=== PATIENT | female | born 1950 | race Caucasian/White ===

== ENCOUNTER 2022-07-29 07:16 | Day surgery (SDC) | payer MEDICARE, OTHER, SELFPAY ==
--- NOTE | 2022-07-29 07:34 | SUR.PREOP ---
Patient provided home covid negative results to RN.
--- NOTE | 2022-07-29 07:34 | SUR.PREOP ---
The eye drops brought by the patient (Ketorolac and Prednisolone) are examined and I have determined they are labeled by the patient's pharmacy for this patient as prescribed by the surgeon. The bottles are intact, recently obtained and appear to be correct.
[2022-07-29] MEDS: TETRACAINE 0.5% OPHTH 1 DROP EYE-RIGHT ×2 (07:40→07:51)
[2022-07-29 07:46] VITALS: BMI 38.4
[2022-07-29] MEDS: KETOROLAC OPHTH 0.5% 1 DROP EYE-RIGHT ×2 (07:49→08:00)
[2022-07-29 08:00] VITALS: BP 148/77; PULSE 69; RESP 16; TEMP 36.8; O2SAT 96
[2022-07-29] MEDS: SODIUM CHLORIDE 0.9 % (FLUSH) 10 ML SYRINGE IVF (08:01)
[2022-07-29] MEDS: TETRACAINE 0.5% OPHTH 2 DROP EYE-RIGHT (08:47)
[2022-07-29] MEDS: BALANCED SALT IRRIG SOLN 15 ML EYE-RIGHT (08:55)
[2022-07-29] MEDS: TRYPAN BLUE 0.5 ML SYRINGE EYE-RIGHT (08:55)
--- NOTE | 2022-07-29 08:57 | P.ANES_ITS ---
Anesthesia Charges Start Date/Time Anesthesia Start Date: 07/29/22 Anesthesia Start Time: 08:48 Stop Date/Time Anesthesia Stop Date: 07/29/22 Anesthesia Stop Time: 09:22 Summary Extremes of Age - Over 70 or under 1: [employer]
[2022-07-29] MEDS: ERYTHROMYCIN OPHTH OINT 3.5 GM 1 APPLIC EYE-RIGHT (09:13)
[2022-07-29 09:17] VITALS: BP 143/70; PULSE 60; RESP 16; TEMP 36.3; O2SAT 96
[2022-07-29 09:33] VITALS: BP 138/66; PULSE 62; RESP 16; O2SAT 97
--- NOTE | 2022-07-29 10:14 | P.OPTPRC_ITS ---
Procedure Note Date of procedure: 07/29/22 Will [facility] bill your pro fee for this procedure?: Yes Procedure Description: SURGEON: Alayna Wilson MD PREOPERATIVE DIAGNOSIS: Mature cataract, right eye. POSTOPERATIVE DIAGNOSIS: Mature cataract, right eye. NAME OF OPERATION: Phacoemulsification of cataract with posterior chamber intraocular lens implantation in the right eye with trypan blue. ANESTHESIA: Topical. ESTIMATED BLOOD LOSS: Less than 2 cc. COMPLICATIONS: None. PATHOLOGY SPECIMEN: None. INDICATIONS: See consult note for details. The risks, benefits and alternatives of the procedure were explained to the patient, who elected to proceed and signed informed consent to do so. PROCEDURE: The patient was brought to the pre-holding area where the right eye was identified as the operative eye. I placed my initials above this eye. The patient received eye drops consisting of 0.5% tetracaine, 1% tropicamide, 10% phenylephrine, and 0.5% ketorolac. The patient was then brought to the operating room where the left eye was again identified as the operative eye. The eye was prepped with Betadine and draped in the usual sterile ophthalmic fashion. A #15 super-sharp blade was used to create a paracentesis site. 1% non-preserved intracameral lidocaine was injected into the anterior chamber. An air bubble was injected into the anterior chamber. Trypan blue was injected posterior to the air bubble in order to stain the anterior capsule. Balanced salt solution was used to irrigate the anterior chamber. Endocoat was injected into the anterior chamber. A 2.4 mm keratome was used to create a three-plane self-sealing incision 1 mm anterior to the temporal limbus. A cystotome was used to create an anterior capsular leaflet. The Utrata forceps were used to extend this to form a continuous curvilinear capsulorrhexis. Hydrodissection was performed. The cataract was removed with phacoemulsification using the [id number] technique. The irrigation and aspiration tip was used to remove the remaining cortex. Healon was injected into the capsular bag. An BERNY ZCB00 intraocular lens of 19.5 diopters was injected into the capsular bag. The irrigation and aspiration tip was used to remove the remaining viscoelastic. Balanced salt solution on a cannula was used to hydrate the wound, and the wound was found to be watertight. The pupil was noted to be round. A small corneal abrasion was noted anterior to the paracentesis site. Therefore erythromycin ophthalmic ointment was placed. DISPOSITION: The patient was taken to the recovery room and discharged to home in stable condition. The patient was notified of the corneal abrasion and instructed to use the erythromycin ophthalmic ointment 4 times a day today and tomorrow, then as directed. The patient was instructed to call me or go to the emergency department with any sudden change, including dramatic loss of vision, severe pain in the eye or eyebrow region, nausea, or vomiting. The patient will follow up in the clinic tomorrow morning. Surgeon: Alayna Wilson MD
== END 2022-07-29 09:49 | disposition home or self-care (01) ==
LOC: OR 07:25
PROVIDERS: PCP Family Medicine; Visit Provider Ophthalmology
PROC: (CPT 66984; principal; 2022-07-29 07:30)
DX: H25.89 Other age-related cataract (principal)
CPT/HCPCS: 66984; 00142; 99100; A9270; J2250; J3010; V2632

== ENCOUNTER 2022-08-12 06:19 | Day surgery (SDC) | payer MEDICARE, OTHER, SELFPAY ==
[2022-08-12 06:39] VITALS: BP 143/62; PULSE 81; RESP 18; TEMP 36.6; O2SAT 93; BMI 38.4
[2022-08-12] MEDS: TETRACAINE 0.5% OPHTH 1 DROP EYE-LEFT ×2 (06:46→06:50)
[2022-08-12] MEDS: KETOROLAC OPHTH 0.5% 1 DROP EYE-LEFT ×2 (06:49→06:53)
[2022-08-12] MEDS: SODIUM CHLORIDE 0.9 % (FLUSH) 10 ML SYRINGE IVF (06:55)
--- NOTE | 2022-08-12 08:03 | W.ANESCHARGE ---
Anesthesia Charges Start Date/Time Anesthesia Start Date: 08/12/22 Anesthesia Start Time: 08:08 Stop Date/Time Anesthesia Stop Date: 08/12/22 Anesthesia Stop Time: 08:42 Summary Extremes of Age - Over 70 or under 1: MDA
[2022-08-12] MEDS: TETRACAINE 0.5% OPHTH 2 DROP EYE-LEFT (08:10)
[2022-08-12] MEDS: BALANCED SALT IRRIG SOLN 15 ML EYE-LEFT (08:14)
[2022-08-12 08:40] VITALS: BP 137/76; PULSE 68; RESP 20; TEMP 36.4; O2SAT 99
--- NOTE | 2022-08-12 08:44 | W.ANESCHARGE ---
Anesthesia Charges Start Date/Time Anesthesia Start Date: 08/12/22 Anesthesia Start Time: 08:08 Stop Date/Time Anesthesia Stop Date: 08/12/22 Anesthesia Stop Time: 08:42
--- NOTE | 2022-08-12 08:44 | W.PM.OPTPROC ---
Procedure Note Date of procedure: 08/12/22 [address] [facility] bill your pro fee for this procedure?: Yes Procedure Description: SURGEON: Alayna Wilson MD PREOPERATIVE DIAGNOSIS: Nuclear sclerotic cataract, left eye. POSTOPERATIVE DIAGNOSIS: Nuclear sclerotic cataract, left eye. NAME OF OPERATION: Phacoemulsification of cataract with posterior chamber intraocular lens implantation in the left eye. ANESTHESIA: Topical. ESTIMATED BLOOD LOSS: Less than 2 cc. COMPLICATIONS: None. PATHOLOGY SPECIMEN: None. INDICATIONS: See consult note for details. The risks, benefits and alternatives of the procedure were explained to the patient, who elected to proceed and signed informed consent to do so. PROCEDURE: The patient was brought to the pre-holding area where the left eye was identified as the operative eye. I placed my initials above this eye. The patient received eye drops consisting of 0.5% tetracaine, 1% tropicamide, 10% phenylephrine, and 0.5% ketorolac. The patient was then brought to the operating room where the left eye was again identified as the operative eye. The eye was prepped with Betadine and draped in the usual sterile ophthalmic fashion. A #15 super-sharp blade was used to create a paracentesis site. 1% non-preserved intracameral lidocaine was injected into the anterior chamber. Endocoat was injected into the anterior chamber. A 2.4 mm keratome was used to create a three-plane self-sealing incision 1 mm anterior to the temporal limbus. A cystotome was used to create an anterior capsular leaflet. The Utrata forceps were used to extend this to form a continuous curvilinear capsulorrhexis. Hydrodissection was performed. The cataract was removed with phacoemulsification using the [id number] technique. The irrigation and aspiration tip was used to remove the remaining cortex. Healon was injected into the capsular bag. An BERNY ZCB00 intraocular lens of 19.0 diopters was injected into the capsular bag. The irrigation and aspiration tip was used to remove the remaining viscoelastic. Balanced salt solution on a cannula was used to hydrate the wound, and the wound was found to be watertight. The pupil was noted to be round. DISPOSITION: The patient was taken to the recovery room and discharged to home in stable condition. The patient was instructed to call me or go to the emergency department with any sudden change, including dramatic loss of vision, severe pain in the eye or eyebrow region, nausea, or vomiting. The patient will follow up in the clinic tomorrow morning. Surgeon: Alayna Wilson MD
== END 2022-08-12 09:03 | disposition home or self-care (01) ==
PROVIDERS: PCP Family Medicine; Visit Provider Ophthalmology
PROC: (CPT 66984; principal; 2022-08-12 06:45)
DX: H25.12 Age-related nuclear cataract, left eye (principal)
CPT/HCPCS: 66984; 00142; 99100; A9270; J2250; J3010; V2632

== ENCOUNTER 2023-06-02 14:52 | Outpatient (CLI) | payer MEDICARE, OTHER, SELFPAY ==
--- NOTE | 2023-06-02 15:30 | CRLHL7_ITS ---
For Patients: As a result of the Century Cures Act, medical imaging exams and procedure reports are released immediately into your electronic medical record. You may view this report before your referring provider. If you have questions, please contact your health care provider. DXA BONE MINERAL DENSITY STUDY Reason for exam: Osteoporosis. Current height (in): 62. Weight (lb): 214. Menopause age: 47 Ethnicity: White. 1. Have you had a previous hip or vertebral fracture? No. 2. Have you had any fractures during your adult life which did not result from significant trauma (e.g., auto accident)? No. 3. Did either of your parents have a hip fracture? Yes. 4. Do you smoke? Yes. 5. Have you ever taken Glucocorticoids? No. 6. Do you have rheumatoid arthritis? No. 7. Do you have secondary osteoporosis? No. 8. Do you drink 3 or more alcoholic drinks per day? No. 9. Are you being treated for osteoporosis? No. 10. Have you ever taken any of the following medications: Actonel, Evista, Fosamax, Miacalcin, Reclast, Boniva, Forteo, HRT (i.e., estrogen/hormone therapy), Protelos, Prolia, Vitamin D, Calcium, other ??? please specify. ANSWER: Yes, vitamin D. 11. Do you have any of the following medical conditions: Anorexia or bulimia, asthma or emphysema, end stage renal disease, hyperparathyroidism, any seizure disorders, cancer, inflammatory bowel diseases, hysterectomy, other ??? please specify. ANSWER: No. 12. What was your maximum height (inches)? 63. 13. Do you perform weight bearing exercise regularly? No. 14. Do you regularly consume dairy products? No. 15. Do you drink caffeinated beverages? Yes. If female: 16. At what age did your period start? Not provided. 17. Are you premenopausal? No. 18. How many full-term pregnancies have you had? 4. 19. Have you ever missed your period for more than 6 months in a row (not including or menopause)? No. TECHNIQUE: Bone mineral density study was performed using the Cronote. FINDINGS: The results of the study expressed as bone mineral density (BMD) are as follows: Lumbar spine L1to L4: BMD: 0.898 g/cm2. T-score: -1.4. Z-score: 0.9 Neck Right: BMD: 0.738 g/cm2. T-score: -1.0. Z-score: 1.0. Total Right: BMD: 0.888 g/cm2. T-score: -0.4. Z-score: 1.2. IMPRESSION: Osteopenia. FRAX 10-year Fracture Risk Major Osteoporotic Fracture: 14% Hip Fracture: 5.4% Reported Risk Factors: [place] () Neck BMD=0.738, BMI= 39.1, parental fracture, smoking Phuc Faulkner M.D. Diagnostic Radiologist [email or web address] DSM/[email or web address] castillo/Dictated by: Phuc Faulkner MD @ 06/03/2023 9:15:00 AM (Electronically Signed)
== END 2023-06-02 14:53 | disposition home or self-care (01) ==
LOC: RAD 14:53
PROVIDERS: PCP Family Medicine; Visit Provider Family Medicine
DX: Z13.820 Encounter for screening for osteoporosis (principal); M85.89 Other specified disorders of bone density and structure, multiple sites; Z78.0 Asymptomatic menopausal state
CPT/HCPCS: 77080

== ENCOUNTER 2024-04-03 14:51 | Outpatient (CLI) | payer MEDICARE, OTHER, SELFPAY ==
--- OUTSIDE RECORDS SUMMARY | 2024-04-03 15:01 | XMS_ITS | Clinical Summary ---
Author Organization [facility] Address [address] [place] [address] Care Team Providers Care Director Furniture Name Role Phone Paco Seals MD Primary Care Provider Allergies Active Allergy Reactions Criticality Noted Date Comments Adhesive Tape Other (see comments) High Water blisters Oxycodone Nausea And Vomiting High Medications Medication Sig Dispensed Refills Start Date End Date Status atorvastatin (Lipitor) 20 MG tabletIndications:Mix ed hyperlipidemia Take one pill in the PM for cholesterol 90 tablet 3 04/14/2023 Active olmesartan (Benicar) 20 MG tabletIndications:[facility] hypertension Take 1/2 pill a day for the first ten days then take one full pill daily for blood pressure 90 tablet 3 04/14/2023 Active aspirin 81 MG chewable tablet Chew 1 tablet (81 mg total) 1 (one) time each day Active cholecalciferol (VITAMIN D-3) 25 MCG (1000 UT) tablet Take 1 tablet (1,000 Units total) by mouth 1 (one) time each day Active Cyanocobalamin (B-12 PO) Take by mouth Active Magnesium 250 MG tablet Take by mouth Active acetaminophen (TYLENOL) 500 MG tablet Take 2 tablets (1,000 mg total) by mouth every 6 (six) hours if needed for mild pain Active Active Problems Problem Noted Date Diagnosed Date Risk factors for obstructive sleep apnea 023 Primary hypertension 04/14/2023 Family history of ASCVD 04/14/2023 Family history of stroke 04/14/2023 First degree AV block 07/14/2022 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) 07/14/2022 Cataracts, bilateral 04/09/2022 Decreased hearing of both ears 04/18/2019 Mixed hyperlipidemia 05/07/2018 Primary osteoarthritis of both hips 05/07/2018 Cigarette nicotine dependence without complicati on 05/07/2018 TIA (transient ischemic attack) 05/07/2018 Family history of malignant neoplasm of breast 1 07/06/2015 Obesity 03/11/2016 Personal history of malignant neoplasm of breast 10/05/2013 Resolved Problems Problem Noted Date Diagnosed Date Resolved Date History of TIA (transient ischemic attack) 04/18/2019 04/05/2021 Encounters Date Type Department Care Team Description 03/31/[address] [address] Paco Seals MD Referrals (Radiology and Orthopedics) 03/30/2024 3:20 PM CDT Office Visit [address] [address] Paco Seals MD Medicare annual wellness visit, subsequent (Primary Dx); Primary hypertension; Mixed hyperlipidemia; Osteopenia, unspecified location; Low TSH level; Chronic left hip pain; Greater trochanteric pain syndrome; Need for hepatitis C screening test; History of total hip arthroplasty, left; Immunization due 03/29/2024 Nurse Triage [address] [address] Paco Seals MD from Last 3 Months Immunizations Name Administration Dates Next Due COVID-19, mRNA, LNP-S, PF, 3 0mcg/0.3mL dose Pfizer 09/11/2020,08/21/2020 COVID-19, mRNA, LNP-S, bival ent booster 12 yr and older, PF, 30mcg/0.3mL dose (pfizer) 05/18/2022 Flu Vaccine High Dose 65yrs and Older IM 04/14/2023,04/08/2022,04/04/2021,03/19,05/06/2018,06/11/2017,03/11/2016 Influenza, High-Dose, Trival ent, PF, 65 yrs and Older 03/31/2024,05/06/2018,06/11/2017,03/11 Influenza, Unspecified 03/21/2019 Pneumococcal Conjugate 13-Valent 03/11/2016 Pneumococcal Polysaccharide 06/11/2017 Tdap 04/08/2022,12/04/2011 Family History Medical History Relation Comments Seizures Brother 1 Relation Status Comments Brother 1 Brother 2 Alive Brother 3 Alive Brother 4 Alive Brother 5 Alive Brother 6 Alive Daughter Alive Father Mother Sister 1 Alive Sister 2 Alive Sister 3 Passed 2 hours a fter Son 1 Alive Son 2 Alive Son 3 Alive Social History Tobacco Use Types Packs/Day Years Used Date Smoking Tobacco: Every Day Cigarettes 0.3 50 Smokeless Tobacco: Never Tobacco Cessation:Ready to Q uit: No; Counseling Given: No Alcohol Use Standard Drinks/Week Comments No 0 (1 standard drink = 0.6 oz pur e alcohol) B1300 Health Literacy Answer Date Recor ded How often do you need to hav e someone help you when you read instructions, pamphlets, or other written material from your doctor or pharmacy? Never 03/30/2024 [employer] Utilities Answer Date Recorded In the past 12 months has e [employer], or water [employer] threatened to shut off services in your home? No 03/30/2024 Humiliation, Afraid, Rape, and Kick questionnair e Answer Date Recorded Within the last year, have y ou been afraid of your partner or ex-partner? No 03/30/2024 Within the last year, have y ou been humiliated or emotionally abused in other ways by your partner or ex-partner? No Within the last year, have y ou been kicked, hit, slapped, or otherwise physically hurt by your partner or ex-partner? No 03/30/2024 Within the last year, have y ou been raped or forced to have any kind of sexual activity by your partner or ex-partner? No 03/30/2024 Social Connection and Isolation Panel [NHANES] A nswer Date Recorded In a typical week, how many times do you talk on the phone with family, friends, or neighbors? Never 03/30/2024 How often do you get togethe r with friends or relatives? Three times a week 03/30/2024 How often do you attend [facility] or jain services? Never 03/30/2024 Do you belong to any clubs o r organizations such as taoism groups, unions, fraternal or athletic groups, or school groups? No 03/30/2024 How often do you attend meet ings of the clubs or organizations you belong to? Never 03/30/2024 Are you , , di vorced, , never , or living with a partner? 03/30/2024 AUDIT-C Answer Date Recorded Q1: How often do you have a drink containing alcohol? Monthly or less 03/30/2024 Q2: How many drinks containi ng alcohol do you have on a typical day when you are drinking? Patient does not drink Q3: How often do you have si x or more drinks on one occasion? Never 03/30/2024 Overall Financial Resource Strain (CARDIA) Answe r Date Recorded How hard is it for you to pa y for the very basics like food, housing, medical care, and heating? Not hard at all 03/30/2024 PHQ-2 Answer Date Recorded PHQ-9 Total Score 9 03/30/2024 [facility] - Occupational Stress Questionnaire Answer Date Recorded Do you feel stress - tense, restless, nervous, or anxious, or unable to sleep at night because your mind is troubled all the time - these days? Not at all 03/30/2024 Exercise Vital Sign Answer Date Recorde d On average, how many days pe r week do you engage in moderate to strenuous exercise (like a brisk walk)? 0 days 03/30/2024 On average, how many minutes do you engage in exercise at this level? 0 min 03/30/2024 Hunger Vital Sign Answer Date Recorded Within the past 12 months, y ou worried that your food would run out before you got the money to buy more. Never true 03/30/20 24 Within the past 12 months, t he food you bought just didn't last and you didn't have money to get more. Never true 03/30/2024 PRAPARE - Transportation Answer Date Re corded In the past 12 months, has l ack of transportation kept you from medical appointments or from getting medications? No 03/21 In the past 12 months, has l ack of transportation kept you from meetings, work, or from getting things needed for daily living? No 03/30/2024 Housing Stability Vital Sign Answer Carlito e Recorded In the last 12 months, was t here a time when you were not able to pay the mortgage or rent on time? No 04/14/2023 In the last 12 months, how many places have you lived? 1 04/14/2023 In the last 12 months, was t here a time when you did not have a steady place to sleep or slept in a senior living (including now)? No 04/14/2023 Housing Stability Vital Sign Answer Carlito e Recorded In the last 12 months, was t here a time when you were not able to pay the mortgage or rent on time? No 03/30/2024 In the past 12 months, how m any times have you moved where you were living? 0 03/30/2024 At any time in the past 12 m [facility], were you homeless or living in a senior living (including now)? No 03/30/2024 Interpersonal Safety Questionnaire Answer Date Recorded How often does anyone, jack gamble family and friends, physically hurt you? Never 03/30/2024 How often does anyone, jack gamble family and friends, insult or talk down to you? Never 03/30/2024 How often does anyone, jack gamble family and friends, threaten you with harm? Never 03/30/2024 How often does anyone, jack gamble family and friends, threaten you with harm? Never 03/30/2024 Sex and Gender Information Value Date Recorded Sex Assigned at Not on file Gender Identity Not on file Sexual Orientation Not on file Last Filed Vital Signs Vital Sign Reading Time Taken Comments Blood Pressure 138/64 03/30/2024 3:19 PM CDT Pulse 91 03/30/2024 3:19 PM CDT Temperature 36.7 ??C (98 ??F) 03/30/2024 3:19 PM CDT Respiratory Rate 18 03/30/2024 3:19 PM CDT Oxygen Saturation 95% 03/30/2024 3:19 PM CDT Inhaled Oxygen Concentration - - Weight 96.3 kg (212 lb 6.4 oz) 03/30/2024 3:19 P M CDT Height 159 cm (5' 2.6) 03/30/2024 3:19 PM CDT Body Mass Index 38.11 03/30/2024 3:19 PM CDT Plan of Treatment Upcoming Encounters Date Type Department Care Team (Late st Contact Info) Description 04/13/2024 2:00 PM CDT Office Visit Paco Walters [address] [place] [id number] 04/13/2024 2:20 PM CDT Immunization [address] [address] 04/18/2024 3:20 PM CDT Office Visit [address] [address] Paco Seals MD [address] [address] Health Maintenance Due Date Last Done Comments Bone Density Scan 1950 CT Colonography 1950 Sigmoidoscopy 1950 iFOBT 1950 Zoster Vaccines (1 of 2) 2000 Colonoscopy 01/19/2022 01/19/2019 Colorectal Cancer Screening 04/28/2022 COVID-19 Vaccine ( season) 2024 05/18/2022, 04/22/2021, 09/11/2020, Additional history exists Fall Risk Performed 03/30/2025 03/30/2024 Medicare Annual Wellness Visit (AWV) 03/30/2025 03/30/2024 FIT-DNA 04/27/2025 04/27/2022 DTaP,Tdap,and Td Vaccines (3 - Td or Tdap) 04/08/2032 04/08/2022, 12/04/2011 Mammogram Discontinued 04/15/2016 Pneumococcal Vaccine: 65+ Years Completed 06/11/2017, 03/11/2016 Influenza Vaccine Completed 03/31/2024, , 04/08/2022, Additional history exists HPV Vaccines Aged Out No longer eligi ble based on patient's age to complete this topic Procedures Procedure Name Priority Date/Time Associated Diagnosis Comments COLOGUARD Routine 04/27/2022 4:30 AM CORE SHAPER Colon cancer screening MAMMOGRAM BREAST DIAGNOSTIC TOMOSYNTHESIS RIGHT Routine 04/15/2016 9:12 AM CDT from Last 3 Months or Most Recently Relevant to Health Maintenance Results * (ABNORMAL) Cologuard (04/27/2022 4:30 AM CORE SHAPER) Cologuard result Positive( A) Negative [employer] Comment: POSITIVE TEST RESULT. A positive Cologuard result should be followed with a colonoscopy or visual examination of the colon. The normal value (reference range) for this assay is negative. TEST DESCRIPTION: Composite algorithmic analysis of stool DNA-biomarkers with hemoglobin immunoassay. ?? Quantitative values of individual biomarkers are not reportable and are not associated with individual biomarker result reference ranges. Cologuard is intended for colorectal cancer screening of adults of either sex, 45 years or older, who are at average-risk for colorectal cancer (CRC). Cologuard has been approved for use by the U.S. FDA. The performance of Cologuard was established in a cross sectional study of average-risk adults aged 50-84. Cologuard performance in patients ages 45 to 49 years was estimated by sub-group analysis of near-age groups. Colonoscopies performed for a positive result may find as the most clinically significant lesion: colorectal cancer [4.0%], advanced adenoma (including sessile serrated polyps greater than or equal to 1cm diameter) [20%] or non- advanced adenoma [31%]; or no colorectal neoplasia [45%]. These estimates are derived from a prospective cross-sectional screening study of 10,000 individuals at average risk for colorectal cancer who were screened with both Cologuard and colonoscopy. (Crystal Dougherty al, N Engl J Med 2014;370(14):2796-9575.) Cologuard may produce a false negative or false positive result (no colorectal cancer or precancerous polyp present at colonoscopy follow up). A negative Cologuard test result does not guarantee the absence of CRC or advanced adenoma (pre-cancer). The current Cologuard screening interval is every 3 years. (Citizen Of [place] Cancer Society and U.S. Multi-Society Task Force). Cologuard performance data in a 10,000 patient pivotal study using colonoscopy as the reference method can be accessed at the following location: www.eTutor.Parastructure/results. Additional description of the Cologuard test process, warnings and precautions can be found at www.[employer].Parastructure. [facility], [address] [place] [address], [place], [address], , Clinical Laboratory [employer], [employer], , BENNETTIA NO: [id number] Stool 04/27/2022 4:30 AM CORE SHAPER 04/28/2022 1:18 PM CORE SHAPER Miesha Larkin MD LAB BODY FLUIDS AND STOOLS ORDERABLES [facility], [address] [address], * Mammogram breast diagnostic tomosynthesis right (04/15/2016 9:12 AM CDT) Anatomical Region Laterality Modality Breast Right Mammography 04/15/2016 9:12 AM CDT Narrative 04/15/2016 12:16 PM CDT Exam Description MAMMOGRAM UNILATERAL RIGHT DIAGNOSTIC DIGITAL WITH MELISSA Clinical History Clinical Finding(s): Nipple abnormality Presenting Diagnosis Clinical Finding(s): Nipple abnormality History and Indication last know mammogram > 2 years ago Palpable lump(s). ??Indicate on diagram.: No Palpable thickening. ??Indicate on diagram.: No Nipple discharge: No Breast pain focal or diffuse.: No Personal history of breast cancer: Yes Follow up previous mammographic or sonographic abnormality: No Recent surgical or needle biopsy 6 months follow up: No Breast skin changes (retraction, coloring, texture): No Other diagnosis/signs and symptoms: Yes Implants: No Has the patient had this exam at an outside facility: Yes Ted Program: No Views can be adjusted per Radiologist to accommodate patient's condition: Yes Mammography Risk Factors Personal: Post-menopausal patient; Personal breast cancer history Family: Weak family history of breast cancer(Maternal Aunt, aged in 70s; Maternal Aunt, aged in late 70s; Maternal Cousin, 37, daughter of an aunt with breast cancer) Procedures Performed Mastectomy, Left Breast, 07/22/2011, Malignant Comparison Comparison is made to images from 10/11/2013 (right). ?? Findings Right Breast Findings: There are scattered fibroglandular densities (25% - 50% fibroglandular). ??An area of architectural distortion is presen approximately at 12 o'clock 3 cm from the nipple. ? An equal density round mass with circumscribed margins is present in the upper outer quadrant at a distance of 6 cm from the nipple. ? Impression RIGHT BREAST: Architectural distortion. Ultrasound is recommended ??at this time. ? Round ??mass in the upper outer quadrant. Ultrasound is recommended ?? at this time. ? OVERALL ASSESSMENT - CATEGORY 0 - INCOMPLETE: ??NEED ADDITIONAL IMAGING EVALUATION Procedure Note Lon Weber MD - 03/13/2018 Exam Description MAMMOGRAM UNILATERAL RIGHT DIAGNOSTIC DIGITAL WITH MELISSA Clinical History Clinical Finding(s): Nipple abnormality Presenting Diagnosis Clinical Finding(s): Nipple abnormality History and Indication last know mammogram > 2 years ago Palpable lump(s). Indicate on diagram.: No Palpable thickening. Indicate on diagram.: No Nipple discharge: No Breast pain focal or diffuse.: No Personal history of breast cancer: Yes Follow up previous mammographic or sonographic abnormality: No Recent surgical or needle biopsy 6 months follow up: No Breast skin changes (retraction, coloring, texture): No Other diagnosis/signs and symptoms: Yes Implants: No Has the patient had this exam at an outside facility: Yes Ted Program: No Views can be adjusted per Radiologist to accommodate patient's condition: Yes Mammography Risk Factors Personal: Post-menopausal patient; Personal breast cancer history Family: Weak family history of breast cancer(Maternal Aunt, aged in 70s; Maternal Aunt, aged in late 70s; Maternal Cousin, 37, daughter of an aunt with breast cancer) Procedures Performed Mastectomy, Left Breast, 07/22/2011, Malignant Comparison Comparison is made to images from 10/11/2013 (right). Findings Right Breast Findings: There are scattered fibroglandular densities (25% - 50% fibroglandular). An area of architectural distortion is presen approximately at 12 o'clock 3 cm from the nipple. An equal density round mass with circumscribed margins is present in the upper outer quadrant at a distance of 6 cm from the nipple. Impression RIGHT BREAST: Architectural distortion. Ultrasound is recommended at this time. Round mass in the upper outer quadrant. Ultrasound is recommended at this time. OVERALL ASSESSMENT - CATEGORY 0 - INCOMPLETE: NEED ADDITIONAL IMAGING EVALUATION D. Jhoan Larkin MD IMG BI PROCEDURES from Last 3 Months or Most Recently Relevant to Health Maintenance Care Teams Director Furniture Relationship Specialty Start Date End Date Paco Seals MD [address] [place] [address] PCP - General 04/08/23
--- OUTSIDE RECORDS SUMMARY | 2024-04-03 15:01 | XMS_ITS | Encounter Summary ---
Author Organization [facility] Address [address] [place] [address] Care Team Providers Care Wedger Machine Name Role Phone Paco Seals MD Primary Care Provider Reason for Visit * Reason Onset Date Comments Referrals 03/31/2024 Radiology and Or thopedics Encounter Details Date Type Department Care Team (Late st Contact Info) Description 03/31/2024 Telephone [place] [address] [place] [address] Paco Seals MD [address] [facility] [address] [place] [address] Referrals (Radiology and Orthopedics) Social History Tobacco Use Types Packs/Day Years Used Date Smoking Tobacco: Every Day Cigarettes 0.3 50 Smokeless Tobacco: Never Alcohol Use Standard Drinks/Week Comments No 0 (1 standard drink = 0.6 oz pur e alcohol) B1300 Health Literacy Answer Date Recor ded How often do you need to hav e someone help you when you read instructions, pamphlets, or other written material from your doctor or pharmacy? Never 03/30/2024 [facility] Utilities Answer Date Recorded In the past 12 months has th e electric, gas, oil, or water company threatened to shut off services in your [...] week 03/30/2024 How often do you attend chur or cheondoism services? Never 03/30/2024 Do you belong to any clubs o r organizations such as orthodoxy groups, unions, fraternal or athletic groups, or [...] Date Recorded PHQ-9 Total Score 9 03/30/2024 [facility] - Occupational Stress Questionnaire Answer Date Recorded [...] place to sleep or slept in a mcfp (including now)? No 04/14/2023 Housing Stability Vital Sign Answer Carlito e Recorded In the last 12 months, was t here a time when you were not able to pay the mortgage or rent on time? No 03/30/2024 In the past 12 months, how m any times have you moved where you were living? 0 03/30/2024 At any time in the past 12 m [facility], were you homeless or living in a mcfp (including now)? No 03/30/2024 Interpersonal Safety Questionnaire [...] on file Sexual Orientation Not on file documented as of this encounter Miscellaneous Notes * Telephone Encounter - Rosalinda Snell RN - 03/31/2024 1:01 PM CDT Noted. * Telephone Encounter - Caroline Espinosa - 03/31/2024 12:41 PM CDT Referrals faxed to [facility] for Orthopedics, fax [phone], and RAD, fax [phone]. * Telephone Encounter - Rosalinda Snell RN - 03/31/2024 12:08 PM CDT Please fax referrals to [facility] and [facility] (Radiology and Orthopedics department). Thank you! documented in this encounter Plan of Treatment Upcoming Encounters Date Type Department Care Team (Late st Contact Info) Description 04/13/2024 2:00 PM CDT Office Visit [address] [phone] 04/13/2024 2:20 PM CDT Immunization [address] [address] 04/18/2024 3:20 PM CDT Office Visit [address] [address] Paco Seals MD [address] [place] [address] documented as of this encounter Visit Diagnoses Not on filedocumented in this encounter Care Teams Wedger Machine Relationship Specialty Start Date End Date Paco Seals MD [address] [place] [address] PCP - General 04/08/23 documented as of this encounter
--- OUTSIDE RECORDS SUMMARY | 2024-04-03 15:02 | XMS_ITS | Encounter Summary ---
Author Organization [facility] er Address [address] [place] [address] Care Team Providers Care Inspecting Machine Adjuster Name Role Phone Paco Seals MD Primary Care Provider Reason for Referral * Consultation (Routine) - Authorized Specialty Diagnoses / Procedures Referred By Contac t Referred To Contact Virtual Care Diagnoses Primary hypertension Paco Seals MD [address] [place] [address] [facility] [place] Remote Monitoring [address] [place] [address] Referral ID Status Reason Start Date Expiration Date V isits Requested Visits Authorized [id number] Authorized 12/28/2023 12/28/2024 1 1 Encounter Details Date Type Department Care Team (Late st Contact Info) Description 12/28/2023 Orders Only [facility] 4th Floor [address] [place] [id number] Paco Seals MD [address] [place] [address] Primary hypertension Social History Tobacco Use Types Packs/Day Years Used Date Smoking Tobacco: Every Day Cigarettes 0.3 50 Smokeless Tobacco: Never Alcohol Use Standard Drinks/Week Comments No 0 (1 standard drink = 0.6 oz pur e alcohol) Humiliation, Afraid, Rape, and Kick questionnair e Answer Date Recorded Within the last year, have y ou been afraid of your partner or ex-partner? No 04/14/2023 Within the last year, have y ou been humiliated or emotionally abused in other ways by your partner or ex-partner? No Within the last year, have y ou been kicked, hit, slapped, or otherwise physically hurt by your partner or ex-partner? No 04/14/2023 Within the last year, have y ou been raped or forced to have any kind of sexual activity by your partner or ex-partner? No 04/14/2023 Social Connection and Isolation Panel [NHANES] A nswer Date Recorded In a typical week, how many times do you talk on the phone with family, friends, or neighbors? Once a week 04/14/2023 How often do you get togethe r with friends or relatives? Three times a week 04/14/2023 How often do you attend [facility] or church services? Never 04/14/2023 Do you belong to any clubs o r organizations such as sikhism groups, unions, fraternal or athletic groups, or school groups? No 04/14/2023 How often do you attend meet ings of the clubs or organizations you belong to? Never 04/14/2023 Are you , , di vorced, , never , or living with a partner? 04/14/2023 AUDIT-C Answer Date Recorded Q1: How often do you have a drink containing alc ohol? Monthly or less 04/14/2023 Q2: How many drinks containi ng alcohol do you have on a typical day when you are drinking? 1 or 2 04/14/2023 Q3: How often do you have si x or more drinks on one occasion? Never 04/14/2023 Overall Financial Resource Strain (CARDIA) Answe r Date Recorded How hard is it for you to pa y for the very basics like food, housing, medical care, and heating? Not hard at all 04/14/2023 PHQ-2 Answer Date Recorded PHQ-9 Total Score 0 05/19/2023 [facility] [place] of Occupat ional Health - Occupational Stress Questionnaire Answer Date Recorded Do you feel stress - tense, restless, nervous, or anxious, or unable to sleep at night because your mind is troubled all the time - these days? Not at all 04/14/2023 Exercise Vital Sign Answer Date Recorde d On average, how many days pe r week do you engage in moderate to strenuous exercise (like a brisk walk)? 0 days 04/14/2023 On average, how many minutes do you engage in exercise at this level? 0 min 04/14/2023 Hunger Vital Sign Answer Date Recorded Within the past 12 months, y ou worried that your food would run out before you got the money to buy more. Never true 04/14/20 23 Within the past 12 months, t he food you bought just didn't last and you didn't have money to get more. Never true 04/14/2023 PRAPARE - Transportation Answer Date Re corded In the past 12 months, has l ack of transportation kept you from medical appointments or from getting medications? No 03/22 In the past 12 months, has l ack of transportation kept you from meetings, work, or from getting things needed for daily living? No 04/14/2023 Housing Stability Vital Sign Answer [...] place to sleep or slept in a penitentiary (including now)? No 04/14/2023 Sex and Gender Information Value Date Recorded Sex Assigned at Not on file Gender Identity Not on file Sexual Orientation Not on file documented as of this encounter Plan of Treatment Upcoming Encounters Date Type Department Care Team (Late st Contact Info) Description 04/13/2024 2:00 PM CDT Office Visit [place] 1705 [facility] [place] [facility] 20 [place] [address] 04/13/2024 2:20 PM CDT Immunization [place] [address] [facility] 20 [place] [address] 04/18/2024 3:20 PM CDT Office Visit [address] [address] Paco Seals MD [address] [facility] [place] [facility] [address] [place] [address] Scheduled Referrals Name Type Priority Associated Diagnoses Orde r Schedule Ambulatory Referral for Remote Monitoring Outpatient Referral Routine Primary hypertension Ordered: 12/28/2023 documented as of this encounter Visit Diagnoses Diagnosis Primary hypertension Unspecified essential hypertension documented in this encounter Care Teams Inspecting Machine Adjuster Relationship Specialty Start Date End Date Paco Seals MD [address] [address] PCP - General 04/08/23 documented as of this encounter
--- OUTSIDE RECORDS SUMMARY | 2024-04-03 15:02 | XMS_ITS | Encounter Summary ---
Author Organization [facility] er Address [address] [place] [address] Care Team Providers Care Hinging Machine Operator Name Role Phone Paco Seals MD Primary Care Provider Reason for Visit * Reason Onset Date Comments Leg Pain 03/29/2024 Encounter Details Date Type Department Care Team (Late st Contact Info) Description 03/29/2024 Nurse Triage [place] [facility] [place] [address] Paco Seals MD 1705 [facility] 20 [place] [address] Social History Tobacco Use Types Packs/Day Years [...] from your doctor or pharmacy? Never 03/30/2024 [facility] Utilities Answer Date Recorded In the past 12 months has e electric, gas, oil, or water company [...] 03/30/2024 How often do you attend chur ch or restorationist services? Never 03/30/2024 Do you belong to any clubs o r organizations such as christian groups, unions, fraternal or athletic groups, or [...] Date Recorded PHQ-9 Total Score 9 03/30/2024 [facility] [place] of Occupat ional Health - Occupational Stress [...] place to sleep or slept in a correction (including now)? No 04/14/2023 Housing Stability Vital Sign Answer Carlito e Recorded In the last 12 months, was t here a time when you were not able to pay the mortgage or rent on time? No 03/30/2024 In the past 12 months, how m any times have you moved where you were living? 0 03/30/2024 At any time in the past 12 m [facility], were you homeless or living in a correction (including now)? No 03/30/2024 Interpersonal Safety Questionnaire [...] encounter Miscellaneous Notes * Telephone Encounter - Ursula Caldwell RN - 03/29/2024 2:11 PM CDT S = Patient is having left leg pain B = Patient has a history of hip replacement A = Patient is having 8 out of 10 pain in her left leg and knee. There is no known injury, redness,rash, or loss of sensation. She is having a hard time sleeping with the pain but is still able to walk and go to work. R = Patient be seen in the office today or tomorrow--transferred to R for scheduling. Reason for Disposition Patient wants to be seen Protocols used: Leg Pain-A-OH documented in this encounter Plan of Treatment Upcoming Encounters Date Type Department Care Team (Late st Contact Info) Description 04/13/2024 2:00 PM CDT Office Visit [address] [address] 04/13/2024 2:20 PM CDT Immunization [address] [address] 04/18/2024 3:20 PM CDT Office Visit [address] [address] Paco Seals MD 1705 [facility] 20 [place] [address] documented as of this encounter Visit Diagnoses Not on filedocumented in this encounter Care Teams Hinging Machine Operator Relationship Specialty Start Date End Date Paco Seals MD [address] [place] [address] PCP - General 04/08/23 documented as of this encounter
--- OUTSIDE RECORDS SUMMARY | 2024-04-03 15:02 | XMS_ITS | Encounter Summary ---
Author Organization [facility] er Address [address] [place] [address] Care Team Providers Care Pipe Connector Name Role Phone Paco Seals MD Primary Care Provider Reason for Referral * Consultation (Routine) - Authorized Specialty Diagnoses / Procedures Referred By Contac t Referred To Contact Diagnoses Chronic left hip pain Greater trochanteric pain syndrome History of total hip arthroplasty, left Paco Seals MD 1705 [facility] 20 [place] [address] [place] [id number] Referral ID Status Reason Start Date Expiration Date V isits Requested Visits Authorized [id number] Authorized 03/30/2024 03/31/2025 1 1 * Consultation (Routine) - Authorized Specialty Diagnoses / Procedures Referred By Contac t Referred To Contact Diagnoses Chronic left hip pain Greater trochanteric pain syndrome History of total hip arthroplasty, left Paco Seals MD [address] [place] [address] [address] Referral ID Status Reason Start Date Expiration Date V isits Requested Visits Authorized [id number] Authorized 03/30/2024 03/31/2025 1 1 Reason for Visit * Reason Comments Leg Pain Left Encounter Details Date Type Department Care Team (Late st Contact Info) Description 03/30/2024 3:20 PM CDT Office Visit [place] [facility] [facility] [place] [address] Paco Seals MD [address]05 [facility] 20 [place] [address] Medicare annual wellness visit, subsequent (Primary Dx); Primary hypertension; Mixed hyperlipidemia; Osteopenia, unspecified location; Low TSH level; Chronic left hip pain; Greater trochanteric pain syndrome; Need for hepatitis C screening test; History of total hip arthroplasty, left; Immunization due Social History Tobacco Use Types Packs/Day Years [...] from your doctor or pharmacy? Never 03/30/2024 [facility] Utilities Answer Date Recorded In the past 12 months has [facility] [employer], gas, oil, or water [employer] threatened to shut off services in your [...] often do you attend chur ch or muslim services? Never 03/30/2024 Do you belong to any clubs o r organizations such as jainism groups, unions, fraternal or athletic groups, or [...] Date Recorded PHQ-9 Total Score 9 03/30/2024 [facility] of Occupat ional Health - Occupational Stress [...] place to sleep or slept in a prison (including now)? No 04/14/2023 Housing Stability Vital Sign Answer Carlito e Recorded In the last 12 months, was t here a time when you were not able to pay the mortgage or rent on time? No 03/30/2024 In the past 12 months, how m any times have you moved where you were living? 0 03/30/2024 At any time in the past 12 m [facility] were you homeless or living in a prison (including now)? No 03/30/2024 Interpersonal Safety Questionnaire [...] on file documented as of this encounter Last Filed Vital Signs Vital Sign Reading [...] Mass Index 38.11 03/30/2024 3:19 PM CDT documented in this encounter Plan of Treatment Upcoming Encounters Date Type Department Care Team (Late st Contact Info) Description 04/13/2024 2:00 PM CDT Office Visit [address] [address] 04/13/2024 2:20 PM CDT Immunization [address] [address] 04/18/2024 3:20 PM CDT Office Visit [address] [address] Paco Seals MD [address] [address] Scheduled Orders Name Type Priority Associated Diagnoses Orde r Schedule Hepatitis C antibody Lab Routine Need for hepatitis C screening test Expected: 04/30/2024 (Approximate), Expires: 03/30/2025 ALT Lab Routine Osteopenia, unspecified location Expected: 04/30/2024, Expires: 03/30/2025 Lipid panel Lab Routine Mixed hyperlipidemia Expected: 04/30/2024, Expires: 03/30/2025 CBC Branch Off w/Diff Lab Routine Primary hypertension Expected: 04/30/2024, Expires: 03/30/2025 Vitamin D, Total Lab Routine Osteopenia, unspecified location Expected: 04/30/2024, Expires: 03/30/2025 Microalbumin/Creatinine Ratio Lab Routine Primary hypertension Expected: 04/30/2024, Expires: 03/30/2025 Basic metabolic panel Lab Routine Primary hypertension Expected: 04/30/2024, Expires: 03/30/2025 TSH Lab Routine Low TSH level Expected: 04/30/2024, Expires: 03/30/2025 T4, free Lab Routine Low TSH level Expected: 04/30/2024, Expires: 03/30/2025 Scheduled Referrals Name Type Priority Associated Diagnoses Orde r Schedule Ambulatory External Referral [facility]; Orthopedics Outpatient Referral Routine Chronic left hip pain Greater trochanteric pain syndrome History of total hip arthroplasty, left Ordered: 03/30/2024 Ambulatory External Referral [facility]; Radiology Outpatient Referral Routine Chronic left hip pain Greater trochanteric pain syndrome History of total hip arthroplasty, left Ordered: 03/30/2024 documented as of this encounter Visit Diagnoses Diagnosis Medicare annual wellness visit, subsequent- Primary Primary hypertension Unspecified essential hypertension Mixed hyperlipidemia Osteopenia, unspecified location Low TSH level Chronic left hip pain Greater trochanteric pain syndrome Need for hepatitis C screening test Special screening examination for other specified viral diseases History of total hip arthroplasty, left Immunization due documented in this encounter Care Teams Pipe Connector Relationship Specialty Start Date End Date Paco Seals MD [address] [place] [address] PCP - General 04/08/23 documented as of this encounter
--- NOTE | 2024-04-03 15:30 | CRLHL7_ITS ---
For Patients: As a result of the Century Cures Act, medical imaging exams and procedure reports are released immediately into your electronic medical record. You may view this report before your referring provider. If you have questions, please contact your health care provider. INDICATION: Chronic left hip pain. TECHNIQUE: AP pelvis and 2 views the left hip. FINDINGS: There is a left BRAYDEN. Possible lucency around the femoral stem and thickening of the adjacent femoral cortex. Loosening not excluded. Comparison with any prior exams would be helpful. Otherwise normal. Dictated by Scott Knutson MD @ 04/05/2024 10:33:23 AM (Electronically Signed)
== END 2024-04-03 14:52 | disposition home or self-care (01) ==
PROVIDERS: PCP Family Medicine; Visit Provider Family Medicine
DX: M25.552 Pain in left hip (principal); G89.29 Other chronic pain; Z96.642 Presence of left artificial hip joint
CPT/HCPCS: 73502

== ENCOUNTER 2024-05-16 14:46 | Outpatient (CLI) | payer MEDICARE, OTHER, SELFPAY ==
--- OUTSIDE RECORDS SUMMARY | 2024-05-16 14:49 | XMS_ITS | Clinical Summary ---
Author Organization [facility] er Address [address] [place] [address] Care Team Providers Care Town Clerk Name Role Phone Paco Seals MD Primary Care Provider Allergies Active Allergy Reactions Criticality Noted Date Comments Adhesive Tape Other (see comments) High Water blisters Oxycodone Nausea And Vomiting High Medications aspirin 81 MG chewable tablet Chew 1 [...] hours if needed for mild pain Active atorvastatin (Lipitor) 20 MG tabletIndications: Mixed hyperlipidemia Take one pill in the PM for cholesterol 90 tablet 3 04/20/20 24 Active terbinafine (LamISIL) 250 MG tabletIndications: Onychomycosis Take 1 tablet (250 mg total) by mouth 1 (one) time each day 56 tablet 04/20/20 24 Active olmesartan (Benicar) 20 MG tabletIndications: Primary hypertension Take 1 tablet (20 mg total) by mouth 1 (one) time each day 90 tablet 3 04/20/20 24 Active atorvastatin (Lipitor) 20 MG tabletIndications: Mixed hyperlipidemia Take one pill in the PM for cholesterol 90 tablet 3 04/14/20 23 024 Discontin ued(Reord er) olmesartan (Benicar) 20 MG tabletIndications: Primary hypertension Take 1/2 pill a day for the first ten days then take one full pill daily for blood pressure 90 tablet 3 04/14/20 23 024 Discontin ued(Reord er) Active Problems Problem Noted Date Diagnosed Date Osteopenia 04/04/2024 Chronic left hip pain 04/04/2024 History of total hip arthroplasty, left 04/04/20 Risk factors for obstructive sleep apnea 023 [...] Encounters Date Type Department Care Team Description 04/20/2024 3:20 PM CDT Office Visit [address] [address] Paco Seals MD Onychomycosis (Primary Dx); Mixed hyperlipidemia; Low TSH level; Primary hypertension; Colon cancer screening 04/13/2024 8:20 AM CDT Immunization [address] [address] 04/13/2024 8:00 AM CDT Lab [address] [address] Low TSH level; Primary hypertension; Osteopenia, unspecified location; Mixed hyperlipidemia; Need for hepatitis C screening test 03/31/[address] [address] Paco Seals MD Referrals (Radiology and Orthopedics) 03/30/2024 3:20 PM CDT Office Visit [facility] [address] [place] [address] [place] [address] Paco Seals MD Medicare annual wellness visit, subsequent (Primary Dx); Primary hypertension; Mixed hyperlipidemia; Osteopenia, unspecified location; Low TSH level; Chronic left hip pain; Greater trochanteric pain syndrome; Need for hepatitis C screening test; History of total hip arthroplasty, left; Immunization due 03/29/2024 Nurse Triage [facility] [address] [place] [phone] Paco Seals MD from Last 3 Months Immunizations Name Administration Dates Next Due COVID-19, mRNA, LNP-S, PF, 3 0mcg/0.3mL dose Pfizer 09/11/2020,08/21/2020 COVID-19, mRNA, LNP-S, bival ent booster 12 yr and older, PF, 30mcg/0.3mL dose (pfizer) 05/18/2022 COVID-19, mRNA, LNP-s, PF, shreya-succrose, 30mcg/0.3mL, COMIRNATY Ages 12+ 04/13/2024 Flu Vaccine High Dose 65yrs and Older [...] Used Date Smoking Tobacco: Every Day Cigarettes 0.5 50 Smokeless Tobacco: Never Tobacco Cessation:Ready to Q uit: No; Counseling Given: No Alcohol Use Standard Drinks/Week Comments No 0 (1 standard drink = 0.6 oz pur e alcohol) B1300 Health Literacy Answer Date Recor ded How often do you need to hav e someone help you when you read instructions, pamphlets, or other written material from your doctor or pharmacy? Never 04/20/2024 [facility] Utilities Answer Date Recorded In the past 12 months has e [employer], oil, or water [employer] threatened to shut off services in your [...] How often do you attend chur or yazidism services? Never 03/30/2024 Do you belong to any clubs o r organizations such as zoroastrianism groups, unions, fraternal or athletic groups, or [...] Date Recorded PHQ-9 Total Score 9 03/30/2024 [facility] of Occupat ional Health - Occupational Stress [...] place to sleep or slept in a detention (including now)? No 04/14/2023 Housing Stability Vital [...] time in the past 12 m [facility], were you homeless or living in a detention (including now)? No 03/30/2024 Interpersonal Safety Questionnaire Answer Date Recorded How often does anyone, jack gamble family and friends, physically hurt you? Never 04/20/2024 How often does anyone, jack gamble family and friends, insult or talk down to you? Never 04/20/2024 How often does anyone, jack gamble family and friends, threaten you with harm? Never 04/20/2024 How often does anyone, jack gamble family and friends, threaten you with harm? Never 04/20/2024 Comments No Sex and Gender Information Value Date Recorded Sex Assigned at Not on file Legal Sex Female 8:08 PM CDT Gender Identity Not on file Sexual Orientation Not on file Last Filed Vital Signs Vital Sign Reading Time Taken Comments Blood Pressure 128/62 04/20/2024 3:16 PM CDT Pulse 88 04/20/2024 3:16 PM CDT Temperature 36.1 C (96.9 F) 04/20/2024 3:16 PM CDT Respiratory Rate 16 04/20/2024 3:16 PM CDT Oxygen Saturation 94% 04/20/2024 3:16 PM CDT Inhaled Oxygen Concentration - - Weight 95.9 kg (211 lb 6.4 oz) 04/20/2024 3:16 P M CDT Height 159 cm (5' 2.6) 03/30/2024 3:19 PM CDT Body Mass Index 37.93 03/30/2024 3:19 PM CDT Plan of Treatment Health Maintenance Due Date Last Done Comments Bone Density Scan 1950 CT Colonography 1950 Sigmoidoscopy 1950 iFOBT 1950 Zoster Vaccines (1 of 2) 2000 Colonoscopy 01/19/2022 01/19/2019 Colorectal Cancer Screening 05/02/2022 Fall Risk Performed 03/30/2025 03/30/2024 Medicare Annual Wellness Visit (AWV) 03/30/2025 03/30/2024 FIT-DNA 05/01/2025 05/01/2022, 04/27/2022 DTaP,Tdap,and Td Vaccines (3 - Td or Tdap) 04/08/2032 04/08/2022, 12/04/2011 Mammogram Discontinued 04/15/2016 Pneumococcal Vaccine: 65+ Years Completed 06/11/2017, 03/11/2016 Influenza Vaccine Completed 03/31/2024, , 04/08/2022, Additional history exists COVID-19 Vaccine Completed 04/13/2024, , 04/22/2021, Additional history exists HPV Vaccines Aged Out No longer eligi ble based on patient's age to complete this topic Procedures Procedure Name Priority Date/Time Associated Diagnosis Comments ESTIMATED GLOMERULAR FILTRATION RATE (EGFR) Routine 04/13/2024 8:19 AM CDT Primary hypertension HEPATITIS C ANTIBODY Routine 04/13/2024 8:19 AM CDT Need for hepatitis C screening test ALT Routine 04/13/2024 8:19 AM CDT Osteopenia, unspecified location LIPID PANEL Routine 04/13/2024 8:19 AM CDT Mixed hyperlipidemia CBC BRANCH OFFICE W/DIFF Routine 04/13/2024 8:19 AM CDT Primary hypertension VITAMIN D, TOTAL Routine 04/13/2024 8:19 AM CDT Osteopenia, unspecified location BASIC METABOLIC PANEL Routine 04/13/2024 8:19 AM CDT Primary hypertension TSH Routine 04/13/2024 8:19 AM CDT Low TSH level T4, FREE Routine 04/13/2024 8:19 AM CDT Low TSH level MICROALBUMIN/CREATINI NE RATIO Routine 04/13/2024 8:03 AM CDT Primary hypertension COLOGUARD Routine 04/27/2022 4:30 AM SPLICING MACHINE OPERATOR Colon cancer screening MAMMOGRAM BREAST DIAGNOSTIC TOMOSYNTHESIS RIGHT Routine 04/15/2016 9:12 AM CDT from Last 3 Months or Most Recently Relevant to Health Maintenance Results * Estimated Glomerular Filtration Rate (eGFR) (04/13/2024 8:19 AM CDT) Estimated Glomerular Filtration Rate (eGFR) >60 04/13/2024 8:31 AM CDT [facility] Comment: GFR calculated from serum creatinine value Chronic Kidney Disease less than 60 mL/min/1.73 m2 Kidney Failure less than 15 mL/min/1.73 m2 Note: effective 06/17/2022: 2020 CKD-EPI Equation used 04/13/2024 8:19 AM CDT 04/13/2024 8:19 AM CDT Paco Seals MD LAB BLOOD ORDERABLES Final R esult Performing Organization Address [facility] Co de Phone Number [facility] [address] [place] [phone] * Vitamin D, Total (04/13/2024 8:19 AM CDT) Vitamin D, Total 34.9 ng/mL 04/13/20 4:48 PM CDT [facility] Comment: Deficient <20 Insufficient 20-<30 Sufficient 30-100 Vitamin D2/D3 fractionation is recommended at the discretion of the clinician if Total Vitamin D is within deficient or insufficient range. Blood 04/13/2024 8:19 AM CDT 04/13/2024 12:42 PM CDT Paco Seals MD LAB BLOOD ORDERABLES Final R esult Performing Organization Address City/[facility] Co de Phone Number [facility] [address] [place] [phone] * (ABNORMAL) CBC Branch Off w/Diff (04/13/2024 8:19 AM CDT) WBC 4.9 3.5 - 10.5 K/uL 04/13/2024 8:31 AM CDT [facility] RBC 4.77 3.90 - 5.00 M/uL 04/13/2024 8:31 AM CDT [facility] Hemoglobin 14.6 12.0 - 15.5 g/dL 04/13/2024 8:31 AM CDT [facility] Hematocrit 45.0(H) 35.0 - 44.0 % 04/13/2024 8:31 AM CDT [facility] Platelets 203 150 - 450 K/uL 04/13/2024 8:31 AM CDT [facility] MCV 94.3 81.6 - 98.3 fL 04/13/2024 8:31 AM CDT [facility] MCH 30.6 26.0 - 32.0 pg 04/13/2024 8:31 AM CDT [facility] MCHC 32.4 32.0 - 36.0 g/dL 04/13/2024 8:31 AM CDT [facility] RDW 12.7 11.9 - 15.5 % 04/13/2024 8:31 AM CDT [facility] Lymphocytes % 34.2 % 04/13/2024 8:31 AM CDT [facility] Mid-size Cells 7.8 % 04/13/2024 8:31 AM CDT [facility] Granulocytes/Alvin trophils 58.0 % 04/13/2024 8:31 AM CDT [facility] Lymphocytes Absolute 1.7 0.9 - 2.9 K/uL 04/13/2024 8:31 AM CDT [facility] MIDS Absolute 0.4 0.4 - 1.5 K/uL 04/13/2024 8:31 AM CDT [facility] Granulocytes/Alvin trophils Absolute 2.8 1.7 - 7.0 K/uL 04/13/2024 8:31 AM CDT [facility] Blood 04/13/2024 8:19 AM CDT 04/13/2024 8:19 AM CDT Paco Seals MD LAB BLOOD ORDERABLES Final R esult Performing Organization Address City/[facility]/ZIP Co de Phone Number [facility] [address] [place] [address] * Hepatitis C antibody (04/13/2024 8:19 AM CDT) Hepatitis C Antibody NON-REACT KATELYN Non-React katelyn 04/13/2024 3:32 PM CDT [facility] Comment: The results from this or any other diagnostic test should be used and interpreted only in the context of the overall clinical picture. Heterophilic antibodies in serum or plasma samples may cause interference in immunoassays. Exposure to animal antigens, either in the environment or as part of treatment or imaging procedures, may have circulating anti-animal antibodies present. These antibodies may interfere with the assay reagents to produce unreliable results. Results which are inconsistent with clinical observations indicate the need for additional testing. Blood (Blood, Venous) 04/13/2024 8:19 AM CDT 04/13/2024 12:47 PM CDT Paco Seals MD LAB BLOOD ORDERABLES Final R esult Performing Organization Address [facility] Co de Phone Number [facility] [address] [place] [address] * ALT (04/13/2024 8:19 AM CDT) ALT (SGPT) 21 0 - 34 U/L 04/13/2024 4:47 PM CDT [facility] Blood (Blood, Venous) 04/13/2024 8:19 AM CDT 04/13/2024 12:42 PM CDT Paco Seals MD LAB BLOOD ORDERABLES Final R esult Performing Organization Address City/[facility]/ZIP Co de Phone Number [facility] [address] [place] [address] * (ABNORMAL) TSH (04/13/2024 8:19 AM CDT) TSH, Sensitive 0.30(L) 0.46 - 4.68 mIU/L 04/13/2024 3:11 PM CDT [facility] Comment: The results from this or any other diagnostic test should be used and interpreted only in the context of the overall clinical picture. Biotin levels in serum remain elevated for up to 24 hours after oral or intravenous biotin administration and may interfere with this assay to produce unreliable results. Heterophilic antibodies in serum or plasma samples may cause interference in immunoassays. Exposure to animal antigens, either in the environment or as part of treatment or imaging procedures, may have circulating anti-animal antibodies present. These antibodies may interfere with the assay reagents to produce unreliable results. Results which are inconsistent with clinical observations indicate the need for additional testing. Blood (Blood, Venous) 04/13/2024 8:19 AM CDT 04/13/2024 12:47 PM CDT Paco Seals MD LAB BLOOD ORDERABLES Final R esult [facility] [address] [place] [address] * T4, free (04/13/2024 8:19 AM CDT) Pathologist [facility] Free T4 1.41 0.78 - 2.19 ng/dL 04/13/2024 4:14 PM CDT [facility] Comment: The results from this or any other diagnostic test should be used and interpreted only in the context of the overall clinical picture. Heterophilic antibodies in serum or plasma samples may cause interference in immunoassays. Exposure to animal antigens, either in the environment or as part of treatment or imaging procedures, may have circulating anti-animal antibodies present. These antibodies may interfere with the assay reagents to produce unreliable results. Results which are inconsistent with clinical observations indicate the need for additional testing. Blood (Blood, Venous) 04/13/2024 8:19 AM CDT 04/13/2024 12:47 PM CDT Paco Seals MD LAB BLOOD ORDERABLES Final R esult Performing Organization Address City/[facility]/ZIP Co de Phone Number [facility] [address] [place] [address] * Lipid panel (04/13/2024 8:19 AM CDT) Cholesterol 161 0 - 199 mg/dL 04/13/2024 4:47 PM CDT [facility] Comment: Recommended by National Cholesterol Education Program (ATP III) -------- Cholesterol Ranges -------- <200 Desirable 200-239 Borderline high >=240 High Triglycerides 72 0 - 149 mg/dL 04/13/2024 4:47 PM CDT [facility] Comment: -------- TRIG Ranges -------- <150 Normal 150-199 Borderline high 200-499 High >=500 Very high HDL 64 40 - 250 mg/dL 04/13/2024 4:47 PM CDT [facility] Comment: -------- HDL Ranges -------- <40 Low 40-59 Normal >=60 Optimal LDL Calculated 83 0 - 99 mg/dL 04/13/2024 4:47 PM CDT [facility] Comment: -------- LDL Ranges -------- <100 Optimal 100-129 Near optimal/above optimal 130-159 Borderline high 160-189 High >=190 Very high Blood 04/13/2024 8:19 AM CDT 04/13/2024 12:42 PM CDT Paco Seals MD LAB BLOOD ORDERABLES Final R esult Performing Organization Address City/[facility]/ZIP Co de Phone Number [facility] [address] [place] [address] * (ABNORMAL) Basic metabolic panel (04/13/2024 8:19 AM CDT) Sodium 143 135 - 145 mmol/L 04/13/2024 8:31 AM CDT [facility] [place] Potassium 5.2(H) 3.5 - 5.1 mmol/L 04/13/2024 8:31 AM CDT [facility] Chloride 101 98 - 107 mmol/L 04/13/2024 8:31 AM CDT [facility] CO2 33(H) 22 - 29 mmol/L 04/13/2024 8:31 AM CDT [facility] Creatinine 0.9 0.4 - 1.2 mg/dL 04/13/2024 8:31 AM CDT [facility] BUN 23 5 - 25 mg/dL 04/13/2024 8:31 AM CDT [facility] Glucose 108(H) 70 - 100 mg/dL 04/13/2024 8:31 AM CDT [facility] Calcium, Total,S 9.8 8.4 - 10.2 mg/dL 04/13/2024 8:31 AM CDT [facility] Anion Gap 9 4 - 13 04/13/2024 8:31 AM CDT [facility] Comment: The anion gap is calculated with the following formula: AGAP = Na (Cl + CO2). Fasting? Yes 04/13/2024 8:20 AM T [facility] Blood 04/13/2024 8:19 AM CDT 04/13/2024 8:19 AM CDT us Paco Seals MD LAB BLOOD ORDERABLES Final R esult [facility] [address] [place] [address] * Microalbumin/Creatinine Ratio (04/13/2024 8:03 AM CDT) Microalbumin,mg/ day <6.0 0.0 - 16.6 mg/L 04/13/2024 2:49 PM CDT [facility] Creatinine, Urine 45 mg/dL 04/13/2024 2:49 PM CDT [facility] Comment: No established reference range. Microalb/Creat Ratio see below 0 - 24 mg/g 04/13/2024 2:49 PM CDT [facility] Comment: Microalbumin value outside of detectable range. Unable to report Microalbumin/Creatinine ratio. Consider 24-hour collection if clinically indicated. Urine 04/13/2024 8:03 AM CDT 04/13/2024 12:47 PM CDT us Paco Seals MD LAB URINE ORDERABLES Final R esult [facility] [address] [place] [address] * (ABNORMAL) Cologuard (04/27/2022 4:30 AM SPLICING MACHINE OPERATOR) Cologuard result Positive( A) Negative [employer] Comment: POSITIVE TEST RESULT. A positive Cologuard result should be followed with a colonoscopy or visual examination of the colon. The normal value (reference range) for this assay is negative. TEST DESCRIPTION: Composite algorithmic analysis of stool DNA-biomarkers with hemoglobin immunoassay. Quantitative values of individual biomarkers are not [...] (Crystal Dougherty al, N Engl J Med 2014;370(14):5181-4350.) Cologuard may produce a false negative or false positive result (no colorectal cancer or precancerous polyp present at colonoscopy follow up). A negative Cologuard test result does not guarantee the absence of CRC or advanced adenoma (pre-cancer). The current Cologuard screening interval is every 3 years. ([place] [employer] Society and U.S. Multi-Society Task Force). Cologuard performance data in a 10,000 patient pivotal study using colonoscopy as the reference method can be accessed at the following location: www.[employer]/results. Additional description of the Cologuard test process, warnings and precautions can be found at www.[employer].com. [employer], [address] [place] [address]., [place], [address], , Clinical Laboratory [facility], [employer], , [place] NO: [id number] Stool 04/27/2022 4:30 AM SPLICING MACHINE OPERATOR 04/28/2022 1:18 PM SPLICING MACHINE OPERATOR us Miesha Larkin MD LAB BODY FLUIDS AND STOOLS O RDERABLES Final Result Performing Organization Address City/State/[facility] Co de Phone Number [facility], [address] [address], * Mammogram breast diagnostic tomosynthesis right (04/15/2016 [...] 0 - INCOMPLETE: NEED ADDITIONAL IMAGING EVALUATION Procedure Note Lon Weber [...] 0 - INCOMPLETE: NEED ADDITIONAL IMAGING EVALUATION us Miesha Larkin MD IMRosie BI PROCEDURES Edited Res ult - Final from Last 3 Months or Most Recently Relevant to Health Maintenance Insurance MEDICARE MEDICA PRIME SOLUTION Care Teams Town Clerk Relationship Specialty Start Date End Date Paco Seals MD [address] [place] [address] PCP - General 04/08/23
--- OUTSIDE RECORDS SUMMARY | 2024-05-16 14:50 | XMS_ITS | Clinical Summary ---
Author Organization [facility] Address [place], [place] [address] Care Team Providers Care Graduate Advisor Name Role Phone Clinic, No Pcp Or Primary Care Provider Unavaila ble Social History Tobacco Use Types Packs/Day Years Used Date Smoking Tobacco: Never Assessed Sex and Gender Information Value Date Recorded Sex Assigned at Not on file Gender Identity Not on file Sexual Orientation Not on file Plan of Treatment Health Maintenance Due Date Last Done Comments Tdap 1961 Depression screening for age 12+ 1962 BMI (ht and wt on same day) for age 18+ 1968 Hepatitis C screening for age 18-79 1968 Tetanus booster 1970 Colonoscopy through age 75 1995 Lipids for age 45-75 1995 Mammogram for age 45-75 1995 Zoster (shingles) series for age 50+ (1 of 2) 2000 DEXA/DXA scan for age 65+ 2015 Pneumococcal series for age 65+ (1 of 1 - PCV) 2015 Influenza for age 65+ 02/20/2024 COVID-19 vaccine series Completed 04/13/20 24, 09/11/2020, 08/21/2020 Care Teams Graduate Advisor Relationship Specialty Start Date End Date Clinic, No Pcp Or . PCP - General 12/16/17
--- OUTSIDE RECORDS SUMMARY | 2024-05-16 14:50 | XMS_ITS | Encounter Summary ---
Author Organization [facility] er Address [address] [place] [address] Care Team Providers Care Annual Giving Director Name Role Phone Paco Seals MD Primary Care Provider Reason for Visit * Reason Onset Date Comments Referrals 03/31/2024 Radiology and Or thopedics Encounter Details Date Type Department Care Team (Late st Contact Info) Description 03/31/2024 Telephone [place] [address] [place] [address] Paco Seals MD [address] [facility] [address] [place] [address] Referrals (Radiology and Orthopedics) Social History Tobacco [...] from your doctor or pharmacy? Never 03/30/2024 [facility] Utilities Answer Date Recorded In the [...] How often do you attend chur or gnosticism services? Never 03/30/2024 Do you belong to any clubs o r organizations such as presybeterian groups, unions, fraternal or athletic groups, or [...] Date Recorded PHQ-9 Total Score 9 03/30/2024 [facility] of Occupat ional Health - Occupational Stress [...] place to sleep or slept in a fdc (including now)? No 04/14/2023 Housing Stability Vital Sign Answer Carlito e Recorded In the last 12 months, was t here a time when you were not able to pay the mortgage or rent on time? No 03/30/2024 In the past 12 months, how m any times have you moved where you were living? 0 03/30/2024 At any time in the past 12 m [facility], were you homeless or living in a fdc (including now)? No 03/30/2024 Interpersonal Safety Questionnaire [...] friends, threaten you with harm? Never 03/30/2024 Comments No Sex and Gender Information Value [...] 03/31/2024 12:41 PM CDT Referrals faxed to [facility], fax [phone], and RAD, fax [phone]. * Telephone Encounter - Rosalinda Snell RN - 03/31/2024 12:08 PM CDT Please fax referrals to [facility] and [facility] (Radiology and Orthopedics department). Thank you! documented in this encounter Plan of Treatment Not on file documented as of this encounter Visit Diagnoses Not on filedocumented in this encounter Care Teams Annual Giving Director Relationship Specialty Start Date End Date Paco Seals MD [address] [place] [address] PCP - General 04/08/23 documented as of this encounter
--- OUTSIDE RECORDS SUMMARY | 2024-05-16 14:50 | XMS_ITS | Encounter Summary ---
Author Organization [facility] er Address [address] [place] [address] Care Team Providers Care Unit Controller Name Role Phone Paco Seals MD Primary Care Provider [phone] Reason for Visit * Reason Onset Date Comments Leg Pain 03/29/2024 Encounter Details Date Type Department Care Team (Late st Contact Info) Description 03/29/2024 Nurse Triage [place] [address] [facility] [address] [place] [address] Paco Seals MD [address] [facility] [address] [place] [address] Social History Tobacco Use Types Packs/Day Years [...] from your doctor or pharmacy? Never 03/30/2024 [facility] Utilities Answer Date Recorded In the past [...] often do you attend chur ch or voodoo services? Never 03/30/2024 Do you belong to any clubs o r organizations such as gnosticism groups, unions, fraternal or athletic groups, or [...] Date Recorded PHQ-9 Total Score 9 03/30/2024 [facility] of Occupat ional Health - Occupational Stress [...] place to sleep or slept in a residential (including now)? No 04/14/2023 Housing Stability Vital Sign Answer Carlito e Recorded In the last 12 months, was t here a time when you were not able to pay the mortgage or rent on time? No 03/30/2024 In the past 12 months, how m any times have you moved where you were living? 0 03/30/2024 At any time in the past 12 m [facility], were you homeless or living in a residential (including now)? No 03/30/2024 Interpersonal Safety Questionnaire [...] on filedocumented in this encounter Care Teams Unit Controller Relationship Specialty Start Date End Date Paco Seals MD [address] [place] [address] PCP - General 04/08/23 documented as of this encounter
--- OUTSIDE RECORDS SUMMARY | 2024-05-16 14:50 | XMS_ITS | Encounter Summary ---
Author Organization [facility] er Address [address] [place] [address] Care Team Providers Care Gym Instructor Name Role Phone Paco Seals MD Primary Care Provider [phone] Reason for Visit * Reason Comments Annual Exam Encounter Details Date Type Department Care Team (Latest Contact Info) Description 04/20/2024 3:20 PM CDT Office Visit [facility] [address] [place] [id number] Paco Seals MD [address] [facility] [address] [place] [address] Onychomycosis (Primary Dx); Mixed hyperlipidemia; Low TSH level; Primary hypertension; Colon cancer screening Social History Tobacco Use Types Packs/Day Years [...] from your doctor or pharmacy? Never 04/20/2024 [facility] Utilities Answer Date Recorded In the past 12 months has th e [employer], gas, oil, or water company threatened to [...] often do you attend chur ch or sabianism services? Never 03/30/2024 Do you belong to any clubs o r organizations such as episcopalian groups, unions, fraternal or athletic groups, or [...] Date Recorded PHQ-9 Total Score 9 03/30/2024 [facility] of Occupat ional Health - Occupational Stress [...] place to sleep or slept in a chcf (including now)? No 04/14/2023 Housing Stability Vital Sign Answer Carlito e Recorded In the last 12 months, was t here a time when you were not able to pay the mortgage or rent on time? No 03/30/2024 In the past 12 months, how m any times have you moved where you were living? 0 03/30/2024 At any time in the past 12 m [facility], were you homeless or living in a chcf (including now)? No 03/30/2024 Interpersonal Safety Questionnaire Answer Date Recorded How often does anyone, jack gamble family and friends, physically hurt you? Never 04/20/2024 How often does anyone, jack gmable family and friends, insult or talk down to you? Never 04/20/2024 How often does anyone, jack gamble family and friends, threaten you with harm? Never 04/20/2024 How often does anyone, inclu ding family and friends, threaten you with harm? [...] oz) 04/20/2024 3:16 P M CDT Height - - Body Mass Index 37.93 03/30/2024 3:19 PM CDT documented in this encounter Progress Notes * Paco Seals MD - 04/20/2024 3:20 PM CDT Kallie Palacios is a 73 y.o. female here for Chief Complaint Patient presents with Annual Exam History of Present Illness The patient is a 74-year-old female who presents for her annual review. She has observed an increase in her potassium levels, despite not consuming bananas frequently. Shehas also increased her water intake and fasted prior to her blood work. She is currently taking vitamin D supplements but has discontinued magnesium due to running out of the supplement. She has never experienced kidney stones and rarely consumes milk. She is also taking baby aspirin. Her last bone density scan was conducted in 2022 at [facility]. She has declined colonoscopy but is open to repeating the Cologuard test which was positive. She has not undergone a colonoscopy. She has reduced her smoking habit from a pack a day to half a pack over the past 10 years. She experiences constant hip pain, which varies in intensity. She has had x-rays taken but is unable to consult an orthopedic surgeon until she recalls the hospital and doctor's name in [place] where she had surgery in 2010. Her job involves a lot of standing, bending, and squatting. She has been busy visiting with her daughter who is in hospital following a motorcycle accident. She has noticed a bluish discoloration in her toe for the past week and a half, without any recollection of injury. She has a history of toenail fungus, for which she was treated with medication for 6 months.. The treatment was effective, but the issue has recurred. She also has an ingrown toenail that causes discomfort. She needs to have her toenails trimmed but is unable to do so herself. She had a mastectomy. SOCIAL HISTORY She works at [employer]. She has been smoking for 50 years. IMMUNIZATIONS She has received COVID-19 and influenza vaccine this year. Past Medical History: Diagnosis Date Breast cancer (HCC) 2012 Depression HL (hearing loss) Measles Varicella Visual impairment Past Surgical History: Procedure Laterality Date APPENDECTOMY MASTECTOMY Bilateral x2 TONSILLECTOMY TOTAL HIP ARTHROPLASTY Left ROS: ROS done as noted in HPI. Objective Vitals: 04/20/24 1516 BP: 128/62 BP Location: Right arm Patient Position: Sitting BP Cuff Size: Large adult Pulse: 88 Resp: 16 Temp: (!) 36.1 ??C (96.9 ??F) TempSrc: Temporal SpO2: 94% Weight: 95.9 kg (211 lb 6.4 oz) Physical Exam Physical Exam Gen: vitals reviewed Heart: RRR no murmurs Lungs: CTA bilateralluy MSK: left hip joint tenderness and tenderness left groin with resisted leg raise Derm: discolored thickened toenail Results Laboratory Studies Potassium level is high. Bicarbonate, CO2 level is slightly high. Blood sugar was mildly elevated. TSH was slightly low, free T4 was in the normal range. Cholesterol dropped from 153 to 83. Vitamin Dlevel was okay. Imaging Bone density scan showed osteopenia with a 10-year calculated risk of fracture for major osteoporotic fracture of 14% and major risk for hip fracture of 5.4%. Assessment & Plan 1. Hyperkalemia - Mild. Possibly due to olmesartan or dehydration - Advise hydration - Recheck potassium next year - Seek ER if abnormal chest or heart symptoms 2. Glucose Intolerance - Mildly elevated blood sugar suggests potential glucose intolerance or prediabetes - A1c test next year 3. Subclinical Hyperthyroidism - TSH slightly low, free T4 normal, suggesting stable subclinical hyperthyroidism 4. Osteopenia - Bone density scan indicated osteopenia with a 10-year risk of major osteoporotic fracture at 14% and hip fracture at 5.4% - Advise 800 mg calcium daily - Bone density scan next year - Consider bone density medication 5. Hip Pain - Left hip replacement with possible lucency around femoral stem and thickening of adjacent oral cortex. Loosening not excluded - Advise contacting previous hospitals for medical records - Order CT or MRI to examine prosthesis offered, she will wait to see if she can get records and Ortho to take look 6. Onychomycosis - Discolored toenail likely due to nail fungus - Prescribe medication for 2 months, check liver enzymes, continue treatment for another 3 months if satisfactory - Consider Podiatry referral 7. Medication Management - Continue vitamin D supplement - Advise calcium supplement if dietary intake insufficient - Taking 81 mg baby aspirin 8. Smoking - Advise quitting smoking 9. Health Maintenance - Receive shingles vaccine at pharmacy - Mail Cologuard stool test kit Follow-up - Recheck potassium next year - A1c test next year - Bone density scan next year - Order CT or MRI to examine prosthesis - Check liver enzymes after 2 months of onychomycosis treatment Diagnosis Plan 1. Onychomycosis terbinafine (LamISIL) 250 MG tablet ALT 2. Mixed hyperlipidemia atorvastatin (Lipitor) 20 MG tablet 3. Low TSH level Hemoglobin A1c Basic metabolic panel TSH 4. Primary hypertension olmesartan (Benicar) 20 MG tablet 5. Colon cancer screening Cologuard No follow-ups on file. WHEELER documented in this encounter Plan of Treatment Scheduled Orders Name Type Priority Associated Diagnoses Orde r Schedule Hemoglobin A1c Lab Routine Low TSH level Expected: 04/20/2025 (Approximate), Expires: 10/12/2025 Basic metabolic panel Lab Routine Low TSH level Expected: 04/20/2025 (Approximate), Expires: 10/12/2025 TSH Lab Routine Low TSH level Expected: 04/20/2025 (Approximate), Expires: 10/12/2025 ALT Lab Routine Onychomycosis Expected: 06/05/2024 (Approximate), Expires: 04/20/2025 Cologuard Lab Routine Colon cancer screening Ordered: 04/20/2024 documented as of this encounter Visit Diagnoses Diagnosis Onychomycosis- Primary Dermatophytosis of nail Mixed hyperlipidemia Low TSH level Primary hypertension Unspecified essential hypertension Colon cancer screening Special screening for malignant neoplasms, colon documented in this encounter Care Teams Gym Instructor Relationship Specialty Start Date End Date Paco Seals MD [address] [place] [address] PCP - General 04/08/23 documented as of this encounter
--- OUTSIDE RECORDS SUMMARY | 2024-05-16 14:50 | XMS_ITS | Encounter Summary ---
Author Organization [facility] er Address [address] [place] [address] Care Team Providers Care Iron Caster Name Role Phone Paco Seals MD Primary Care Provider [phone] Reason for Referral * Consultation (Routine) - Authorized Specialty Diagnoses / Procedures Referred By Contac t Referred To Contact Diagnoses Chronic left hip pain Greater trochanteric pain syndrome History of total hip arthroplasty, left Paco Seals MD [address] [place] [address] Phone: tel: fax: [address] [address] Phone: tel: Referral ID Status Reason Start Date Expiration Date V isits Requested Visits Authorized [id number] Authorized 03/30/2024 03/31/2025 1 1 * Consultation (Routine) - Authorized Specialty Diagnoses / Procedures Referred By Contac t Referred To Contact Diagnoses Chronic left hip pain Greater trochanteric pain syndrome History of total hip arthroplasty, left Paco Seals MD [address] [facility] [address] [place] [address] Phone: tel: fax: [address] [address] Phone: tel: Referral ID Status Reason Start Date Expiration Date V isits Requested Visits Authorized [id number] Authorized 03/30/2024 03/31/2025 1 1 Reason for Visit * Reason Comments Leg Pain Left Encounter Details Date Type Department Care Team (Late st Contact Info) Description 03/30/2024 3:20 PM CDT Office Visit [place] [address] [address] Paco Seals MD [address] [place] [phone] Medicare annual wellness visit, subsequent (Primary Dx); [...] from your doctor or pharmacy? Never 03/30/2024 [facility] Utilities Answer Date Recorded In the past 12 months has e [employer], gas, oil, or water [employer] threatened to shut off services in your [...] often do you attend chur ch or judaism services? Never 03/30/2024 Do you belong to any clubs o r organizations such as yazdanism groups, unions, fraternal or athletic groups, or [...] Date Recorded PHQ-9 Total Score 9 03/[facility] - Occupational Stress Questionnaire Answer Date Recorded [...] place to sleep or slept in a halfway (including now)? No 04/14/2023 Housing Stability Vital Sign Answer Carlito e Recorded In the last 12 months, was t here a time when you were not able to pay the mortgage or rent on time? No 03/30/2024 In the past 12 months, how m any times have you moved where you were living? 0 03/30/2024 At any time in the past 12 m [facility], were you homeless or living in a halfway (including now)? No 03/30/2024 Interpersonal Safety Questionnaire Answer Date Recorded How often does anyone, jack gamble family and friends, physically hurt you? Never 03/30/2024 How often does anyone, jakc gamble family and friends, insult or talk down to you? Never 03/30/2024 How often does anyone, inclu ding family and friends, threaten you with harm? Never 03/30/2024 How often does anyone, inclu ding family [...] 91 03/30/2024 3:19 PM CDT Temperature 36.7 C (98 F) 03/30/2024 3:19 PM CDT Respiratory Rate 18 03/30/2024 3:19 PM CDT Oxygen Saturation 95% 03/30/2024 3:19 PM CDT Inhaled Oxygen Concentration - - Weight 96.3 kg (212 lb 6.4 oz) 03/30/2024 3:19 P M CDT Height 159 cm (5' 2.6) 03/30/2024 3:19 PM CDT Body Mass Index 38.11 03/30/2024 3:19 PM CDT documented in this encounter Progress Notes * Paco Seals MD - 03/30/2024 3:20 PM CDT Kallie Palacios is a 73 y.o. female here for Chief Complaint Patient presents with Leg Pain Left History of Present Illness The patient presents for evaluation of left leg pain. She underwent a left hip replacement in 2010 but experienced a recurrence of pain six months post-surgery (albeit pain to a lesser degree after surgery). The pain has since worsened, making it difficult for her to perform daily tasks such as putting on socks. The pain is localized to the side of her thigh and intensifies when she bends her leg. She also experiences discomfort in her groin area. Her pain is exacerbated by standing for long periods at work and is somewhat relieved by sitting. Shemanages the pain with Tylenol (1000 mg every morning) and ibuprofen as needed. She reports no history of stomach ulcers or bleeding. She also reports poor circulation in her legs, which are often cold, and some swelling. She has not had a colonoscopy following a positive Cologuard test in 04/2022. She thinks she had a transient ischemic attack (TIA) years ago before her surgery. She was at work when her hands started feeling funny, her face got tingly, and her lips felt strange. She did not feel right, so she drove herself to the hospital. She was kept overnight and was on oxygen. She takes baby aspirin, Lipitor, Benicar, vitamin D, B12, and magnesium. She had a bone density scan last year and does not have a history of osteoporosis. SOCIAL HISTORY She hardly ever drinks alcohol. FAMILY HISTORY She has a family history of heart disease. ROS: ROS done as noted in HPI. Objective Vitals: 10/10/24 1519 BP: 138/64 BP Location: Left arm Patient Position: Sitting BP Cuff Size: Large adult long Pulse: 91 Resp: 18 Temp: 36.7 ??C (98 ??F) TempSrc: Temporal SpO2: 95% Weight: 96.3 kg (212 lb 6.4 oz) Height: 1.59 m (5' 2.6) Physical Exam Physical Exam MSK: tenderness in left hip groin and left greater trochanter on palpation; pain with resisted hip flexion Results Assessment & Plan 1. Left leg pain. The pain has worsened recently, making it difficult for her to put on socks and sleep comfortably. The pain is located on the side of the thigh and groin area, and it is exacerbated by certain activities at work. Physical examination revealed tenderness in the groin and hip area, and pain during leg lifts and movements. An x-ray of the hip will be ordered. A referral to orthopedics will be made for further evaluation and management. 2. Osteopenia. A bone density scan conducted in May 2023 revealed osteopenia with, according to the DEXA report, a 10 year major osteoporotic fracture risk of 14% and a hip fracture risk of 5.4%. This is a high hip fracture risk score. She is currently on vitamin D but not on calcium. She is advised to consider pharmacologic treatment to prevent fractures and improve bone density. 3. Medication Management. She takes Tylenol 1000 mg every morning and occasionally ibuprofen for pain relief. She is advised that Tylenol is generally safe up to 1418-4661 mg per day. Her liver function was normal in 2020, and she does not consume alcohol frequently. She is also on baby aspirin, Lipitor, Benicar, vitamin D,B12, and magnesium. Refills for blood pressure and cholesterol medications will be provided at upcoming annual check up. 4. Health Maintenance. An influenza vaccine will be administered today. Fasting labs will be ordered to recheck cholesterol and thyroid function. She had a positive Cologuard test in April 2022 but did not follow up with a colonoscopy. She is advised to schedule a colonoscopy. Follow-up Patient is scheduled for a follow-up visit on 04/18/2024. Diagnosis Plan 1. Medicare annual wellness visit, subsequent 2. Primary hypertension CBC Branch Off w/Diff Microalbumin/Creatinine Ratio Basic metabolic panel 3. Mixed hyperlipidemia Lipid panel 4. Osteopenia, unspecified location ALT Vitamin D, Total 5. Low TSH level TSH T4, free 6. Chronic left hip pain Ambulatory External Referral [facility]; Orthopedics Ambulatory External [facility]; Radiology 7. Greater trochanteric pain syndrome Ambulatory [facility]; Orthopedics Ambulatory [facility]; Radiology 8. Need for hepatitis C screening test Hepatitis C antibody 9. History of total hip arthroplasty, left Ambulatory [facility] Referral [facility]; Orthopedics Ambulatory [facility] and [facility]; Radiology 10. Immunization due Flu Vaccine Trivalent High Dose 65yrs and Older No follow-ups on file. * Paco Seals MD - 03/30/2024 3:20 PM CDT Annual Wellness Visit The following portions of the patient's chart were reviewed in this encounter and updated as appropriate: Tobacco Allergies Meds Med Hx Surg Hx Fam Hx Soc Hx Visit Vitals OB Status Postmenopausal Smoking Status Every Day Pain Assessment Scored: and location: BMI/weight management reviewed: BMI: There is no height or weight on file to calculate BMI. Fall Risk Assessment performed. Scored: 09/01 Tug time: 10 seconds PHQ-9 mental health screening performed. Scored: SCAR-7 anxiety screening performed. Scored:0 /21 Mini-Cog test performed. Scored: 5/5 CAGE-AID test performed. Advanced Care Planning: Advance Directive: Patient does not have advance directive, Patient would not like information Would you like to review your Advance Directive?: Not applicable Information Provided on Healthcare Directives: No Patient Requests Assistance: No The following healthcare items are recommended to you based on your age, sex, personal and family history: Health Maintenance Topic Date Due Bone Density Scan Never done Zoster Vaccines (1 of 2) Never done Colorectal Cancer Screening 04/28/2022 COVID-19 Vaccine ( - 2023- season) 2024 Influenza Vaccine (1) 02/20/2024 Medicare Annual Wellness Visit (AWV) 04/14/2024 Fall Risk Performed 03/30/2025 DTaP,Tdap,and Td Vaccines (3 - Td or Tdap) 04/08/2032 Pneumococcal Vaccine: 65+ Years Completed HPV Vaccines Aged Out Mammogram Discontinued ASCVD Risk Score: The 10-year ASCVD risk score (Jean Paul ARRIAGA, et al., 2019) is: 29.1% Values used to calculate the score: Age: 73 years Sex: Female Is Non- : No Diabetic: No Tobacco smoker: Yes Systolic Blood Pressure: 138 mmHg Is BP treated: Yes HDL Cholesterol: 63 mg/dL Total Cholesterol: 233 mg/dL Prostate Cancer Screening: (Male patients only) No results found for: PSA, PSAD Hepatitis C Screening: Recommended for those born between 9052-1793, receiving blood transfusion before 1991, illicit injection drug use No results found for: HEPCAB Glaucoma Screening: Recommended annually if you have diabetes, family history of glaucoma, and over 50 or and over 65. AAA Screening: Screening recommended if not previously done if you have a family history of abdominal aortic aneurysm, or are male age 65-75 and have smoked at least 100 cigarettes in your lifetime Lung Cancer Screening: Recommended annually if age 50-77, asymptomatic, current smoker or quit in last 15 years and have at least a 20 year ???pack year?? history. Social Determinants of Health with Concerns Tobacco Use: High Risk (03/30/2024) Physical Activity: Inactive (03/30/2024) Social Connections: Socially Isolated (03/30/2024) Depression: At risk (03/30/2024) General Care Management Assessment completed with:: (P) Self How do you rate your overall health?: (!) (P) Fair Enrolled in care coordination:: (P) No Do you receive care from providers outside of [facility]: (P) No Do you have a Home Health Agency or receive Foreign Law Consultant Assistance?: (P) No Equipment used at home:: (P) None Do you have or see a dentist regularly?: (P) Yes Dentist Name:: (P) dhruv de león Do you receive routine eye care?: (P) Yes Location of last eye exam:: (P) [place] Do you wear hearing aids:: (P) No Do you have trouble hearing the TV or conversations:: (!) (P) Yes Do you have concerns about your hearing?: (P) No How many times in the last 6 months have you been to the emergency room?: (P) 0 How many times in the last 6 months have you been admitted to the hospital?: (P) 0 Home Safety and Activities of Daily Living Screening Does your home have rugs, poor lighting, or slippery floors?: (P) No Do you use any grab bars in your bathroom, stairs, or steps?: (P) Yes Do you have functional smoke and carbon monoxide detectors: (P) Yes Please rate your level of assistance needed with eating:: (P) Independent Please rate your level of assistance needed with walking: (P) Independent Please rate your level of assistance needed with using stairs: (P) Independent Please rate your level of assistance needed when using the bathroom: (P) Independent Please rate your level of assistance needed when bathing: (P) Independent Please rate your level of assistance needed when getting dressed: (P) Independent Please rate your level of assistance needed when cooking: (P) Independent Please rate your level of assistance needed with laundry: (P) Independent Please rate your level of assistance needed with taking medications: (P) Independent Please rate your level of assistance needed with finances: (P) Independent Please rate your level of assistance needed when shopping for groceries: (P) Independent Please rate your level of assistance needed with housework: (P) Independent Please rate your level of assistance needed with driving/transportation: (P) Independent Please rate your level of assistance needed with home repair: (P) Independent An Annual Wellness Visit was completed today with your healthcare team. This visit allows us to review your health history and identify current or potential risks. Referrals, immunizations, and/or testing may be available to you based on these findings. Please let your healthcare team know if you would like any of these services offered today or at any time in the future. Materials for review regarding available services and resources will be provided. Don't hesitate to reach out to your healthcare team with any questions or concerns. * Rosalinda Snell RN - 03/30/2024 3:20 PM CDT Patient received influenza vaccine today in clinic. Administered as ordered into left deltoid without complications. VIS given to patient. documented in this encounter Plan of Treatment Scheduled Referrals Name Type Priority Associated Diagnoses Orde r Schedule Ambulatory External Referral [facility]; Orthopedics Outpatient Referral Routine Chronic left hip pain Greater trochanteric pain syndrome History of total hip arthroplasty, left Ordered: 03/30/2024 Ambulatory External Referral [facility]; Radiology Outpatient Referral Routine Chronic left hip pain Greater trochanteric pain syndrome History of total hip arthroplasty, left Ordered: 03/30/2024 documented as of this encounter Results * T4, free (04/13/2024 8:19 AM CDT) Free T4 1.41 0.78 - 2.19 ng/dL 04/13/2024 4:14 PM CDT [facility] Comment: The results from this or [...] 8:19 AM CDT 04/13/2024 12:47 PM CDT us Paco Seals MD LAB BLOOD ORDERABLES Final R esult [facility] [address] [place] [address] * (ABNORMAL) TSH (04/13/2024 8:19 AM CDT) TSH, Sensitive 0.30(L) 0.46 - 4.68 mIU/L 04/13/2024 3:11 PM CDT [facility] Comment: The results from this or [...] 8:19 AM CDT 04/13/2024 12:47 PM CDT us Paco Seals MD LAB BLOOD ORDERABLES Final R esult [facility] [address] [place] [address] * (ABNORMAL) Basic metabolic panel (04/13/2024 8:19 AM CDT) Sodium 143 135 - 145 mmol/L 04/13/2024 8:31 AM CDT [facility] [place] Potassium 5.2(H) 3.5 - 5.1 mmol/L 04/13/2024 8:31 AM CDT [facility] [place] Chloride 101 98 - 107 mmol/L 04/13/2024 8:31 AM CDT [facility] [place] CO2 33(H) 22 - 29 mmol/L 04/13/2024 8:31 AM CDT [facility] [place] Creatinine 0.9 0.4 - 1.2 mg/dL 04/13/2024 8:31 AM CDT [facility] [place] BUN 23 5 - 25 mg/dL 04/13/2024 8:31 AM CDT [facility] [place] Glucose 108(H) 70 - 100 mg/dL 04/13/2024 8:31 AM CDT [facility] [place] Calcium, Total,S 9.8 8.4 - 10.2 mg/dL 04/13/2024 8:31 AM CDT [facility] [place] Anion Gap 9 4 - 13 04/13/2024 8:31 AM CDT [facility] [place] Comment: The anion gap is calculated with the following formula: AGAP = Na (Cl + CO2). Fasting? Yes 04/13/2024 8:20 AM CDT [facility] [place] Blood 04/13/2024 8:19 AM CDT 04/13/2024 8:19 AM CDT Paco Seals MD LAB BLOOD ORDERABLES Final R [facility] Performing Organization Address [facility]/ZIP Co de Phone Number [facility] [place] [address] [place] [address] * Vitamin D, Total (04/13/2024 8:19 AM CDT) Vitamin D, Total 34.9 ng/mL 04/13/20 4:48 PM CDT [facility] Comment: Deficient <20 Insufficient 20-<30 Sufficient 30-100 Vitamin D2/D3 fractionation is recommended at the discretion of the clinician if Total Vitamin D is within deficient or insufficient range. Blood 04/13/2024 8:19 AM CDT 04/13/2024 12:42 PM CDT Paco Seals MD LAB BLOOD ORDERABLES Final R [facility] Performing Organization Address [facility]/ZIP Co de Phone Number [facility] [address] [place] [address] * (ABNORMAL) CBC Branch Off w/Diff (04/13/2024 8:19 AM CDT) WBC 4.9 3.5 - 10.5 K/uL 04/13/2024 8:31 AM CDT [facility] [place] RBC 4.77 3.90 - 5.00 M/uL 04/13/2024 8:31 AM CDT [facility] [place] Hemoglobin 14.6 12.0 - 15.5 g/dL 04/13/2024 8:31 AM CDT [facility] [place] Hematocrit 45.0(H) 35.0 - 44.0 % 04/13/2024 8:31 AM CDT [facility] [place] Platelets 203 150 - 450 K/uL 04/13/2024 8:31 AM CDT [facility] [place] MCV 94.3 81.6 - 98.3 fL 04/13/2024 8:31 AM CDT [facility] [place] MCH 30.6 26.0 - 32.0 pg 04/13/2024 8:31 AM CDT [facility] [place] MCHC 32.4 32.0 - 36.0 g/dL 04/13/2024 8:31 AM CDT [facility] [place] RDW 12.7 11.9 - 15.5 % 04/13/2024 8:31 AM CDT [facility] [place] Lymphocytes % 34.2 % 04/13/2024 8:31 AM CDT [facility] [place] Mid-size Cells 7.8 % 04/13/2024 8:31 AM CDT [facility] [place] Granulocytes/Alvin trophils 58.0 % 04/13/2024 8:31 AM CDT [facility] [place] Lymphocytes Absolute 1.7 0.9 - 2.9 K/uL 04/13/2024 8:31 AM CDT [facility] [place] MIDS Absolute 0.4 0.4 - 1.5 K/uL 04/13/2024 8:31 AM CDT [facility] [place] Granulocytes/Alvin trophils Absolute 2.8 1.7 - 7.0 K/uL 04/13/2024 8:31 AM CDT [facility] [place] Blood 04/13/2024 8:19 AM CDT 04/13/2024 8:19 AM CDT Paco Seals MD LAB BLOOD ORDERABLES Final R esult [facility] [place] [address] [place] [address] * Lipid panel (04/13/2024 8:19 AM CDT) Cholesterol 161 0 - 199 mg/dL 04/13/2024 4:47 PM CDT [facility] Comment: Recommended by National Cholesterol Education Program (ATP III) -------- Cholesterol Ranges -------- <200 Desirable 200-239 Borderline high >=240 High Triglycerides 72 0 - 149 mg/dL 04/13/2024 4:47 PM CDT [facility] Comment: -------- TRIG Ranges -------- <150 Normal 150-199 Borderline high 200-499 High >=500 Very high HDL 64 40 - 250 mg/dL 04/13/2024 4:47 PM CDT [facility] Comment: -------- HDL Ranges -------- <40 Low 40-59 Normal >=60 Optimal LDL Calculated 83 0 - 99 mg/dL 04/13/2024 4:47 PM CDT [facility] Comment: -------- LDL Ranges -------- <100 Optimal 100-129 Near optimal/above optimal 130-159 Borderline high 160-189 High >=190 Very high Blood 04/13/2024 8:19 AM CDT 04/13/2024 12:42 PM CDT Paco Seals MD LAB BLOOD ORDERABLES Final R [facility] Performing Organization Address [facility]/RUST de Phone Number [facility] [address] [place] [address] * ALT (04/13/2024 8:19 AM CDT) Pathologist [facility] ALT (SGPT) 21 0 - 34 U/L 04/13/2024 4:47 PM CDT [facility] Blood (Blood, Venous) 04/13/2024 8:19 AM CDT 04/13/2024 12:42 PM CDT Paco Seals MD LAB BLOOD ORDERABLES Final R esult Performing Organization Address [facility] de Phone Number [facility] [address] [place] [phone] * Hepatitis C antibody (04/13/2024 8:19 AM CDT) Hepatitis C Antibody NON-REACT KATELYN Non-React katelyn 04/13/2024 3:32 PM CDT [facility] Comment: The results from this or [...] 8:19 AM CDT 04/13/2024 12:47 PM CDT us Paco Seals MD LAB BLOOD ORDERABLES Final R esult Performing Organization Address [facility] Co de Phone Number [facility] [address] [place] [address] * Microalbumin/Creatinine Ratio (04/13/2024 8:03 AM CDT) Microalbumin,mg/ day <6.0 0.0 - 16.6 mg/L 04/13/2024 2:49 PM CDT [facility] Creatinine, Urine 45 mg/dL 04/13/2024 2:49 PM T [facility] Comment: No established reference range. Microalb/Creat Ratio see below 0 - 24 mg/g 04/13/2024 2:49 PM T [facility] Comment: Microalbumin value outside of detectable range. Unable to report Microalbumin/Creatinine ratio. Consider 24-hour collection if clinically indicated. Urine 04/13/2024 8:03 AM CDT 04/13/2024 12:47 PM CDT us Paco Seals MD LAB URINE ORDERABLES Final R esult Performing Organization Address [facility] Co de Phone Number [facility] [address] [place] [address] documented in this encounter Visit Diagnoses Diagnosis Medicare annual wellness visit, subsequent- Primary Primary hypertension Unspecified essential hypertension Mixed hyperlipidemia Osteopenia, unspecified location Low TSH level Chronic left hip pain Greater trochanteric pain syndrome Need for hepatitis C screening test Special screening examination for other specified viral diseases History of total hip arthroplasty, left Immunization due documented in this encounter Care Teams Iron Caster Relationship Specialty Start Date End Date Paco Seals MD [address] [place] [address] PCP - General 04/08/23 documented as of this encounter
--- OUTSIDE RECORDS SUMMARY | 2024-05-16 14:50 | XMS_ITS | Encounter Summary ---
Author Organization [facility] er Address [address] [place] [address] Care Team Providers Care Trolley Car Mechanic Name Role Phone Paco Seals MD Primary Care Provider Encounter Details Date Type Department Care Team (Late st Contact Info) Description 04/13/2024 8:20 AM CDT Immunization [facility] [address] [place] [address] Social History Tobacco Use Types Packs/Day Years [...] from your doctor or pharmacy? Never 03/30/2024 [facility] Utilities Answer Date Recorded In the past 12 months has [facility] [employer], oil, or water [employer] threatened to shut off services in your [...] How often do you attend chur or zoroastrianism services? Never 03/30/2024 Do you belong to any clubs o r organizations such as muslim groups, unions, fraternal or athletic groups, or [...] Date Recorded PHQ-9 Total Score 9 03/30/2024 [facility] - Occupational [...] No 04/14/2023 Housing Stability Vital Sign Answer Carilto e Recorded In the last 12 months, was t here a time when you were not able to pay the mortgage or rent on time? No 03/30/2024 In the past 12 months, how m any times have you moved where you were living? 0 03/30/2024 At any time in the past 12 m [facility], were you homeless or living in a chcf (including now)? No 03/30/2024 Interpersonal Safety Questionnaire Answer Date Recorded How often does anyone, jack gamble family and friends, physically hurt you? Never 03/30/2024 How often does anyone, jack gamble family and friends, insult or talk down to you? Never 03/30/2024 How often does anyone, migdaliajerald mavis family and friends, threaten you with harm? Never 03/30/2024 How often does anyone, migdaliajerald gamble family and friends, threaten you with harm? Never 03/30/2024 Comments No Sex and Gender Information Value Date Recorded Sex Assigned at Not on file Legal Sex Female 8:08 PM CDT Gender Identity Not on file Sexual Orientation Not on file documented as of this encounter Progress Notes * Rosalinda Snell, RN - 04/13/2024 8:20 AM CDT Patient received COVID vaccine today in clinic. Administered as ordered into left deltoid without complications. VIS given to patient. documented in this encounter Plan of Treatment Not on file documented as of this encounter Visit Diagnoses Not on filedocumented in this encounter Care Teams Trolley Car Mechanic Relationship Specialty Start Date End Date Paco Seals MD [address] [place] [address] PCP - General 04/08/23 documented as of this encounter
--- OUTSIDE RECORDS SUMMARY | 2024-05-16 14:50 | XMS_ITS | Encounter Summary ---
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 Never 04/20/2024 [facility] Utilities Answer Date Recorded In the past 12 months has e [email or web address] gas, oil, or water [employer] threatened to shut off services in your [...] often do you attend chur ch or confucianist services? Never 03/30/2024 Do you belong to [...] Date Recorded PHQ-9 Total Score 9 03/30/2024 [facility] Occupat ional Health - Occupational Stress [...] any time in the past 12 m [facility], were you homeless or living in a [...] as of this encounter Plan of Treatment Not on file documented as of this encounter Procedures Procedure Name Priority Date/Time Associated Diagnosis Comments ESTIMATED GLOMERULAR FILTRATION RATE (EGFR) Routine 04/13/2024 8:19 AM CDT Primary hypertension VITAMIN D, TOTAL Routine 04/13/2024 8:19 AM CDT Osteopenia, unspecified location CBC BRANCH OFFICE W/DIFF Routine 04/13/2024 8:19 AM CDT Primary hypertension HEPATITIS C ANTIBODY Routine 04/13/2024 8:19 AM CDT Need for hepatitis C screening test ALT Routine 04/13/2024 8:19 AM CDT Osteopenia, unspecified location TSH Routine 04/13/2024 8:19 AM CDT Low TSH level T4, FREE Routine 04/13/2024 8:19 AM CDT Low TSH level LIPID PANEL Routine 04/13/2024 8:19 AM CDT Mixed hyperlipidemia BASIC METABOLIC PANEL Routine 04/13/2024 8:19 AM CDT Primary hypertension MICROALBUMIN/CREATI NINE RATIO Routine 04/13/2024 8:03 AM CDT Primary hypertension documented in this encounter Results * Estimated Glomerular Filtration Rate (eGFR) (04/13/2024 8:19 AM CDT) Estimated Glomerular Filtration Rate (eGFR) >60 04/13/2024 8:31 AM CDT [facility] Comment: GFR calculated from serum creatinine value Chronic Kidney Disease less than 60 mL/min/1.73 m2 Kidney Failure less than 15 mL/min/1.73 m2 Note: effective 06/17/2022: 2020 CKD-EPI Equation used 04/13/2024 8:19 AM CDT 04/13/2024 8:19 AM CDT Paco Seals MD LAB BLOOD ORDERABLES Final R esult Performing Organization Address [facility] Co de Phone Number [facility] [address] [place] [phone] * Hepatitis C antibody (04/13/2024 8:19 AM CDT) Hepatitis C Antibody NON-REACT KATELYN Non-React katelyn 04/13/2024 3:32 PM CDT [facility] Comment: The results from this or [...] ORDERABLES Final R esult Performing Organization Address [facility] Co de Phone Number [facility] [address] [place] [phone] * ALT (04/13/2024 8:19 AM CDT) ALT (SGPT) 21 0 - 34 U/L 04/13/2024 4:47 PM CDT [facility] Blood (Blood, Venous) 04/13/2024 8:19 AM CDT 04/13/2024 12:42 PM CDT Paco Seals MD LAB BLOOD ORDERABLES Final R esult Performing Organization Address City/[facility] Co de Phone Number [facility] [address] [place] [address] * Lipid panel (04/13/2024 8:19 AM CDT) Cholesterol 161 0 - 199 mg/dL 04/13/2024 4:47 PM CDT [facility] Comment: Recommended by National Cholesterol Education Program (ATP III) -------- Cholesterol Ranges -------- <200 Desirable 200-239 Borderline high >=240 High Triglycerides 72 0 - 149 mg/dL 04/13/2024 4:47 PM CDT [facility] Comment: -------- TRIG Ranges -------- <150 Normal 150-199 Borderline high 200-499 High >=500 Very high HDL 64 40 - 250 mg/dL 04/13/2024 4:47 PM CDT [facility] Comment: -------- HDL Ranges -------- <40 Low 40-59 Normal >=60 Optimal LDL Calculated 83 0 - 99 mg/dL 04/13/2024 4:47 PM CDT [facility] Comment: -------- LDL Ranges -------- <100 Optimal 100-129 Near optimal/above optimal 130-159 Borderline high 160-189 High >=190 Very high Blood 04/13/2024 8:19 AM CDT 04/13/2024 12:42 PM CDT us Paco Seals MD LAB BLOOD ORDERABLES Final R esult [facility] [address] [place], [place] [id number] * (ABNORMAL) CBC Branch Off w/Diff (04/13/2024 8:19 AM CDT) WBC 4.9 3.5 - 10.5 K/uL 04/13/2024 8:31 AM CDT [facility] [place] RBC 4.77 3.90 - 5.00 M/uL 04/13/2024 8:31 AM CDT [facility] [place] Hemoglobin 14.6 12.0 - 15.5 g/dL 04/13/2024 8:31 AM CDT [facility] [place] Hematocrit 45.0(H) 35.0 - 44.0 % 04/13/2024 8:31 AM CDT [facility] [place] Platelets 203 150 - 450 K/uL 04/13/2024 8:31 AM CDT [facility] [place] MCV 94.3 81.6 - 98.3 fL 04/13/2024 8:31 AM CDT [facility] [place] MCH 30.6 26.0 - 32.0 pg 04/13/2024 8:31 AM CDT [facility] [place] MCHC 32.4 32.0 - 36.0 g/dL 04/13/2024 8:31 AM CDT [facility] [place] RDW 12.7 11.9 - 15.5 % 04/13/2024 8:31 AM CDT [facility] [place] Lymphocytes % 34.2 % 04/13/2024 8:31 AM CDT [facility] [place] Mid-size Cells 7.8 % 04/13/2024 8:31 AM CDT [facility] [place] Granulocytes/Alvin trophils 58.0 % 04/13/2024 8:31 AM CDT [facility] [place] Lymphocytes Absolute 1.7 0.9 - 2.9 K/uL 04/13/2024 8:31 AM CDT [facility] [place] MIDS Absolute 0.4 0.4 - 1.5 K/uL 04/13/2024 8:31 AM CDT [facility] [place] Granulocytes/Alvin trophils Absolute 2.8 1.7 - 7.0 K/uL 04/13/2024 8:31 AM CDT [facility] [place] Blood 04/13/2024 8:19 AM CDT 04/13/2024 8:19 AM CDT us Paco Seals MD LAB BLOOD ORDERABLES Final R esult [facility] [place] [address] [place] [address] * Vitamin D, Total (04/13/2024 8:19 AM CDT) [facility] Vitamin D, Total 34.9 ng/mL 04/13/20 4:48 PM CDT [facility] Comment: Deficient <20 Insufficient 20-<30 Sufficient 30-100 Vitamin D2/D3 fractionation is recommended at the discretion of the clinician if Total Vitamin D is within deficient or insufficient range. Blood 04/13/2024 8:19 AM CDT 04/13/2024 12:42 PM CDT us Paco Seals MD LAB BLOOD ORDERABLES Final R esult [facility] [address] [place] [phone] * (ABNORMAL) Basic metabolic panel (04/13/2024 8:19 AM CDT) Sodium 143 135 - 145 mmol/L 04/13/2024 8:31 AM CDT [facility] [place] Potassium 5.2(H) 3.5 - 5.1 [...] - 100 mg/dL 04/13/2024 8:31 AM CDT [facility] [place] Calcium, Total,S 9.8 8.4 - 10.2 mg/dL 04/13/2024 8:31 AM CDT [facility] [place] Anion Gap 9 4 - 13 04/13/2024 8:31 AM CDT [facility] [place] Comment: The anion gap is calculated with the following formula: AGAP = Na (Cl + CO2). Fasting? Yes 04/13/2024 8:20 AM CDT [facility] [place] Blood 04/13/2024 8:19 AM CDT 04/13/2024 8:19 AM CDT Paco Seals MD LAB BLOOD ORDERABLES Final R [facility] Performing Organization Address City/[facility]/ZIP Co de Phone Number [facility] [place] [address] [place] [address] * (ABNORMAL) TSH (04/13/2024 8:19 AM CDT) TSH, Sensitive 0.30(L) 0.46 - 4.68 mIU/L 04/13/2024 3:11 PM CDT [facility] Comment: The results from this or [...] ORDERABLES Final R esult Performing Organization Address City/[facility]/ZIP Co de Phone Number [facility] [address] [place] [address] * T4, free (04/13/2024 8:19 AM CDT) Free T4 1.41 0.78 - 2.19 ng/dL 04/13/2024 4:14 PM CDT [facility] Comment: The results from this or [...] ORDERABLES Final R esult Performing Organization Address [facility] Co de Phone Number [facility] [address] [place] [address] * Microalbumin/Creatinine Ratio (04/13/2024 8:03 AM CDT) Microalbumin,mg/ day <6.0 0.0 - 16.6 mg/L 04/13/2024 2:49 PM CDT [facility] Creatinine, Urine 45 mg/dL 04/13/2024 2:49 PM CDT [facility] Comment: No established reference range. Microalb/Creat Ratio see below 0 - 24 mg/g 04/13/2024 2:49 PM CDT [facility] Comment: Microalbumin value outside of detectable range. Unable to report Microalbumin/Creatinine ratio. Consider 24-hour collection if clinically indicated. Urine 04/13/2024 8:03 AM CDT 04/13/2024 12:47 PM CDT us Paco Seals MD LAB URINE ORDERABLES Final R esult Performing Organization Address City/[facility] Co de Phone Number [facility] [address] [place] [phone] documented in this encounter Visit Diagnoses Diagnosis Low TSH level Primary hypertension Unspecified essential hypertension Osteopenia, unspecified location Mixed hyperlipidemia Need for hepatitis C screening test Special screening examination for other specified viral diseases documented in this encounter 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
--- NOTE | 2024-05-16 15:30 | MR_ITS ---
[address] [address] Phone:?[phone] Fax:?[phone] Referring Physician Information: George Manjarrez M.D. [id number] [id number] Phone:?[phone] Fax:?[phone] Patient:Lakia Palacios D.O.B:?1950 Sex:?Female Phone:?[phone] [facility] MRN:?[id number] Exam Date:?05/16/2024 EXAM: MRI of the LEFT HIP, without contrast CLINICAL HISTORY: Ongoing left hip pain. History of total left hip arthroplasty. Evaluate for gluteal tendon tear. COMPARISONS: Plain radiographs 04/03/2024. TECHNICAL: MR sequences of the left hip: Axials: PD FS Axial oblique: PD Coronals: PD, T2 Coronal pelvis: T1 and STIR Sagittals: PD and T2 CONTRAST: None SEDATION: None FINDINGS: Pelvis osseous structures: Sacrum: No fracture or destructive osseous lesion is seen of the imaged portions of the sacrum. Sacroiliac joints: No convincing evidence of sacroiliitis of the imaged portions of the sacroiliac joints. Pubic rami: Unremarkable. Symphysis pubis: There is no evidence of acute osteitis pubis. Hip joint: There are surgical changes status post total left hip arthroplasty. Marked metallic hardware artifact markedly compromises evaluation of the adjacent region. No periprosthetic fracture, loosening, or osteolysis is seen although evaluation is markedly compromised by marked metallic hardware artifact. Myotendinous structures: Gluteus abductors: Marked attenuation and ill-definition of the left gluteus minimus tendon insertion and anterior portion of the left gluteus medius tendon insertion are findings consistent with extensive ill-defined high-grade tearing, and there is marked atrophy of the left gluteus minimus and medius muscles. However, it must be noted that evaluation of the left gluteus minimus and medius tendons is markedly compromised by marked metallic hardware artifact by this study that did not optimize metallic artifact reduction. Rectus abdominis-adductor longus aponeurosis, adductors, and rectus abdominis: Unremarkable. Hamstrings: Unremarkable. Flexors: Not well evaluated because of marked metallic hardware artifact. Quadratus femoris muscle: Not well evaluated because of marked metallic hardware artifact. Piriformis muscle: Unremarkable. Gluteal aponeurotic fascia and IT band: Unremarkable. There is moderate atrophy of the bilateral tensor fascia rosalina muscles. Pelvic soft tissues: There is colonic diverticulosis without evidence of diverticulitis. The lumbar spine including degenerative disc disease at L5-S1 is not optimally evaluated by this dedicated MRI of the left hip. IMPRESSION: 1. Surgical changes status post total left hip arthroplasty. 2. It must be noted that evaluation is markedly compromised by marked metallic hardware artifact as this study did not optimize metallic hardware artifact reduction. 3. Marked attenuation and ill-definition of the left gluteus minimus tendon insertion and anterior portion of the left gluteus medius tendon insertion are findings consistent with extensive ill-defined high-grade tearing, and there is marked atrophy of the left gluteus minimus and medius muscles. However, it must be noted that evaluation of the left gluteus minimus and medius tendons is markedly compromised by marked metallic hardware artifact. 4. Colonic diverticulosis without evidence of diverticulitis. 5. No periprosthetic fracture, loosening, or osteolysis is seen although it must be noted that the study was markedly compromised by marked metallic hardware artifact. 6. The lumbar spine including degenerative disc disease at L5-S1 is not optimally evaluated by this dedicated MRI of the left hip. 7. The patient will be called back for repeat imaging in attempt to reduce metallic artifact using a total hip arthroplasty protocol and is to include axial PD and axial STIR sequences. If the patient does return, another report will be issued. RCB Electronically signed on 05/17/2024 9:12:00 AM by Thomas Olsen M.D.
== END 2024-05-16 14:47 | disposition home or self-care (01) ==
LOC: MRI 14:47
PROVIDERS: PCP Family Medicine; Visit Provider Orthopaedic Surgery Sports Medicine
DX: M25.552 Pain in left hip (principal); S76.012A Strain of muscle, fascia and tendon of left hip, initial encounter; K57.30 Diverticulosis of large intestine without perforation or abscess without bleeding; M51.379 Other intervertebral disc degeneration, lumbosacral region without mention of lumbar back pain or lower extremity pain
CPT/HCPCS: 73721

== ENCOUNTER 2025-06-06 14:41 | Outpatient (CLI) | payer MEDICARE, OTHER, SELFPAY ==
--- NOTE | 2025-06-06 15:00 | CRLHL7_ITS ---
For Patients: As a result of the Century Cures Act, medical imaging exams and procedure reports are released immediately into your electronic medical record. You may view this report before your referring provider. If you have questions, please contact your health care provider. DXA BONE MINERAL DENSITY STUDY Reason for exam: Osteopenia with elevated FRAX in 2022. Smoker. Family history of fracture. Current height (in): 62. Weight (lb): 214. Menopause age: 47. Ethnicity: White. 1. Have you had a previous hip or vertebral fracture? No. 2. Have you had any fractures during your adult life which did not result from significant trauma (e.g., auto accident)? No. 3. Did either of your parents have a hip fracture? No. 4. Do you smoke? Yes. 5. Have you ever taken Glucocorticoids? Yes. 6. Do you have rheumatoid arthritis? No. 7. Do you have secondary osteoporosis? No. 8. Do you drink 3 or more alcoholic drinks per day? No. 9. Are you being treated for osteoporosis? No. 10. Have you ever taken any of the following medications: Actonel, Evista, Fosamax, Miacalcin, Reclast, Boniva, Forteo, HRT (i.e. estrogen/hormone therapy), Protelos, Prolia, Vitamin D, Calcium, other ??? please specify. ANSWER: Yes, vitamin D. 11. Do you have any of the following medical conditions: Anorexia or bulimia, asthma or emphysema, end stage renal disease, hyperparathyroidism, any seizure disorders, cancer, inflammatory bowel diseases, hysterectomy, other ??? please specify. ANSWER: No. 12. What was your maximum height (inches)? 63. 13. Do you perform weight bearing exercise regularly? No. 14. Do you regularly consume dairy products? No. 15. Do you drink caffeinated beverages? Yes. 16. At what age did your period start? 12. 17. Are you premenopausal? No. 18. How many full-term pregnancies have you had? 4. 19. Have you ever missed your period for more than 6 months in a row (not including or menopause)? No. TECHNIQUE: Bone mineral density study was performed using the [employer]. FINDINGS: The results of the study expressed as bone mineral density (BMD) are as follows: Lumbar spine L1 to L4: BMD: 0.853 g/cm2. T-score: -1.8. Z-score: 0.6. Neck Right: BMD: 0.724 g/cm2. T-score: -1.1. Z-score: 1.0. Total Right: BMD: 0.857 g/cm2. T-score: -0.7. Z-score: 1.1. IMPRESSION: Osteopenia. *Comparison exams done prior to 11/2019 were performed on different unit, [employer]. COMPARISON: Compared with the scan of 06/02/2023, the bone mineral density has decreased by 5.0 percent at the spine and decreased by 3.5 percent at the hip. FRAX 10-year Fracture Risk Major Osteoporotic Fracture: 14% Hip Fracture: 3.9% Reported Risk Factors: [place] () Neck BMD=0.724, BMI=39.1, smoking, glucocorticoids Phuc Faulkner M.D. Diagnostic Radiologist [email or web address] SHAN/[email or web address]/Dictated by: Phuc Faulkner MD @ 06/07/2025 8:53:00 AM (Electronically Signed)
== END 2025-06-06 14:42 | disposition home or self-care (01) ==
PROVIDERS: PCP Family Medicine; Visit Provider Family Medicine
DX: M85.89 Other specified disorders of bone density and structure, multiple sites (principal); Z78.0 Asymptomatic menopausal state; Z72.0 Tobacco use
CPT/HCPCS: 77080